=== PATIENT | female | born 1960 | race Caucasian/White ===

== ENCOUNTER 2016-10-26 06:30 | Emergency (ER) | payer OTHER ==
[~2016-10-26] VITALS: Ht 165.1 cm; Wt 122.5 kg
[~2016-10-26 06:30] MED LIST: METF500T2 PO
[2016-10-26 06:32] VITALS: BP 147/89
[2016-10-26 07:37] VITALS: BP 142/74
== END 2016-10-26 07:38 | disposition home or self-care (01) ==
LOC: MED 06:30
DX: R53.1 Weakness (principal); R05 Cough; J34.89 Other specified disorders of nose and nasal sinuses; J45.909 Unspecified asthma, uncomplicated; E11.9 Type 2 diabetes mellitus without complications; I10 Essential (primary) hypertension; F17.200 Nicotine dependence, unspecified, uncomplicated; Z90.49 Acquired absence of other specified parts of digestive tract
CPT/HCPCS: 99283

== ENCOUNTER 2019-06-01 17:05 | Inpatient (IN) | payer OTHER ==
[~2019-06-01] VITALS: Ht 152.4 cm; Wt 159.7 kg
--- NOTE | 2019-06-01 17:05 | NUR ---
Pt placed in bed 4 by EMS.
[2019-06-01 17:15] VITALS: BP 224/80
[2019-06-01] MEDS ORDERED: FUROSEMIDE 40 MG/4 ML VIAL IVP ONE (17:25)
--- NOTE | 2019-06-01 17:25 | NUR ---
RT called to place patient on BiPap.
--- NOTE | 2019-06-01 17:30 | NUR ---
59/F BIBA. PT. CAME IN COMLAINING OF SOB INITIAL 02 WAS 91/92. RR 30, BP 213/96, HR 94. 22IVG PLACE ON LEFT HAND BY EMS EN ROUTE. TREATMENT WAS GIVEN ON AMBULANCE +RELIEF WITH IT. PT IS PALE, CRACKLES NOTED BILATERALLY ON EXPIRATION AND INSPIRATION, ACCESORY MUSCLES USED, TACHYPNEA, SOB, CAP REFILL >3SECS, SHE IS COLD TO TOUCH. 02 TO 10L, INITIALLY, SWITCHED TO 2ND TREATMENT TO B-PAP. BP IS 224/80 ER MD AWARE. PMHX: HTN, COPD, DIABETES, SEVERE OSTEOARTHRITIS RX: UNKNOWN
--- NOTE | 2019-06-01 17:31 | NUR ---
RT AT BEDSIDE DOING TREATMENT
[2019-06-01 17:33] VITALS: BP 224/80
[2019-06-01 17:54] LABS: BASOPHILS % (AUTO) 0.5 % (0.0-2.0); EOSINOPHILS # (AUTO) 0.1 K/uL (0-0.4); EOSINOPHILS % (AUTO) 1.7 % (0.0-4.0); HEMATOCRIT 27.4 % (36-48); LYMPHOCYTES # (AUTO) 0.5 K/uL (2.5-16.5); LYMPHOCYTES % (AUTO) 7.2 % (20.5-51.1); MEAN CORPUSCULAR HEMOGLOBIN 27 pg (27-31); MEAN CORPUSCULAR HGB CONC 33 g/dL (33-37); MEAN CORPUSCULAR VOLUME 83.7 fL (80-94); MONOCYTES # (AUTO) 0.3 K/uL (0.8-1.0); MONOCYTES % (AUTO) 3.5 % (1.7-9.3); NEUTROPHILS # (AUTO) 6.5 K/uL (1.8-7.7); NEUTROPHILS % (AUTO) 87.1 % (42.2-75.2); PLATELET COUNT (AUTO) 178 K/uL (140-450); RED BLOOD CELL COUNT(AUTO) 3.28 MIL/uL (4.20-5.40); RED CELL DISTRIBUTION WIDTH 15.7 % (11.6-13.7); WHITE BLOOD COUNT (AUTO) 7.4 K/uL (4.8-10.8)
[2019-06-01 18:08] LABS: ANION GAP 14.5 (8-16); CARBON DIOXIDE 21.3 mmol/L (21-32); CREATININE 1.7 mg/dL (0.6-1.3); POTASSIUM 4.8 mmol/L (3.5-5.1)
[2019-06-01 18:13] LABS: ALBUMIN 1.9 g/dL (3.4-5.0); TOTAL BILIRUBIN 1.1 mg/dL (0.0-1.0)
[2019-06-01] MEDS ORDERED: ACETAMINOPHEN 325 MG TAB PO PRN (19:10)
--- NOTE | 2019-06-01 19:18 | NUR ---
REPORT RECEIVED FROM RAISA EPSTEIN. TRANSFER OF CARE AT THIS TIME.
--- NOTE | 2019-06-01 19:20 | NUR ---
PT SITTING UP IN HIGH ARIAS'S WITH BIPAP MASK ON. VSS. SKIN PINK, WARM, DRY. NO COMPLAINTS AT THIS TIME.
--- NOTE | 2019-06-01 21:02 | NUR ---
mPatient will be admitted to care of Dr. Freeman. Admited to TELE. Will go to room 125A. Belongings list completed. Report to RAISA Bernard.
--- NOTE | 2019-06-01 21:25 | NUR ---
RECEIVED BEDSIDE REPORT FROM NEUROSURGERY SPINE PHYSICIAN. PT IS AAOX4. AMERICAN SPEAKING. WITH SOME SOB RR 25 WILL BE PLACED BACK ON BIPAP. SKIN IS INTACT. REPORTS ECZEMA HAS REDNESS ON ANH ARMS AND LEGS. NO OPEN WOUNDS. PT CAME IN [facility] AND TRANSFERRED PT TO BED WITH ASSIST OF 5 NURSES. PT TOLERATED WELL. ANASARCA NOTED PITTING +4. PT STATES ABLE TO AMBULATE AT HOME. "MY LEGS FEEL TO HEAVY I CAN BARELY MOVE THEM" DENIES ON OXYGEN AT HOME. IV ON L HAND 22G SL. REPORTS SOB IN THE PAST MONTH. LIVES AT HOME WITH BOYFRIEND. POC DISCUSSED WITH PT. VS: 207/90 HR 83 99% ON BIPAP RR 25 98.0 DENIES PAIN. ORIENTED PT TO ROOM AND STAFF, VISITING HOURS, AND CALL LIGHT. MRSA SWAB OBTAINED. WILL CONTINUE TO MONITOR.
[2019-06-01 21:30] VITALS: BP 207/90
--- NOTE | 2019-06-01 21:40 | NUR ---
PAGED DR SCHWARTZ FOR ADMISSION ORDERS. AND HIGH B/P ORDER FOR PRN HYDRALAZINE.
[2019-06-01] MEDS ORDERED: hydrALAZINE 10 MG TAB PO PRN (21:45)
[2019-06-01] MEDS ORDERED: guaiFENesin 20 MG/ML UDC PO PRN (21:45)
--- NOTE | 2019-06-01 22:30 | NUR ---
15 F BRIDGES CATH INSERTED WITH HELP OF 2 OTHER NURSES. PATIENT WAS CLEANED AND THEN USING STERILE TECHNIQUE BRIDGES INSERTED WITH URINE FLASH BACK NOTED ADVANCED 2 MORE INCHES. INFLATED BALLOON WITH 10CC. BAG WAS LABELED WITH DATE TIME AND INITIALS. PT WITH 400CC OUTPUT. PT TOLERATED WELL. CALL LIGHT IS WITHIN REACH. WILL CONTINUE TO MONITOR.
[2019-06-01] MEDS: METOLAZONE 5 MG TAB PO SCH (22:46)
[2019-06-01] MEDS ORDERED: ONDANSETRON 4 MG/2 ML VIAL IVP SCH (23:00)
--- NOTE | 2019-06-01 23:00 | NUR ---
IV ON L HAND INFILTRATED. IV REMOVED IV IS INTACT. NEW IV INSERTED ON R AC 22G ON FIRST ATTEMPT. PT TOLERATED WELL. ALL NEEDS MET AT THIS TIME. WILL CONTINUE TO MONITOR.
[2019-06-01] MEDS: FUROSEMIDE 100 MG/10 ML VIAL IVP SCH (23:06)
--- NOTE | 2019-06-01 23:06 | NUR ---
ROXY MEDICATIONS WERE NOW GIVEN. LASIX IVP WILL RECHECK B/P. SAFETY MEASURES ARE IN PLACE. CALL LIGHT IS WITHIN REACH.
[2019-06-01] MEDS ORDERED: DEXTROSE 50% 50 ML SYR IVP PRN (23:15)
[2019-06-01] MEDS ORDERED: INSULIN LISPRO SLIDING SCALE 100 UNITS/ML VIAL SUBQ PRN (23:15)
[2019-06-01] MEDS ORDERED: hydrALAZINE 20 MG/ML VIAL IVP PRN (23:15)
[2019-06-02] VITALS (7 sets, daily range): BP systolic 117–189; BP diastolic 46–72
--- NOTE | 2019-06-02 00:45 | NUR ---
BP HIGH 181/72 HR 77 ADMINISTERED PRN HYDRALAZINE. ALL SAFETY MEASURES ARE IN PLACE. WILL CONTINUE TO MONITOR.
[2019-06-02] MEDS ORDERED: ALOG25TA2 PO (02:23)
[2019-06-02] MEDS ORDERED: [UNRECOGNIZED DRUG - CODE] TP (02:32)
[2019-06-02] MEDS ORDERED: VITA1TAB44 PO (02:32)
[2019-06-02] MEDS ORDERED: FURO-570 PO (02:32)
[2019-06-02] MEDS ORDERED: VITD1000 PO (02:32)
[2019-06-02] MEDS ORDERED: CARV6.25 PO (02:32)
[2019-06-02] MEDS ORDERED: MONT10TA35 PO (02:32)
[2019-06-02] MEDS ORDERED: ATOR20TA PO (02:32)
[2019-06-02] MEDS ORDERED: HYDR-1098 PO (02:32)
--- NOTE | 2019-06-02 03:00 | NUR ---
RT CHANGED PT FROM BIPAP TO OXIMIZER ON 5L SAT 97%. PT TOLERATED WELL. CALL LIGHT IS WITHIN REACH. WILL CONTINUE TO MONITOR.
--- NOTE | 2019-06-02 04:10 | NUR ---
VITAL SIGNS ARE STABLE. B/P TRENDING DOWN. 163/65 HR 83 SAT 97% ON OXIMIZER 5L. ALL NEEDS MET AT THIS TIME. CALL LIGHT IS WITHIN REACH. WILL CONTINUE TO MONITOR.
--- NOTE | 2019-06-02 06:00 | NUR ---
PATIENT IS SLEEPING COMFORTABLY IN BED. NO S/S OF DISTRESS PT REMAINS ON 5L O2 VIA OXIMIZER. ALL NEEDS MET AT THIS TIME. CALL LIGHT IS WITHIN REACH. WILL CONTINUE TO MONITOR.
[2019-06-02] MEDS: BLOOD GLUCOSE MONITORING 1 DEV DEV FS SCH ×4 (06:05→19:45)
--- NOTE | 2019-06-02 07:23 | NUR ---
DCEREASE OXYMIZER FROM 5L TO 3 L OXYMIZER SPO2 97
--- NOTE | 2019-06-02 07:27 | NUR ---
GAVE BEDSIDE REPORT TO DAY RN. PT ENDORSED IN STABLE CONDITION.
--- NOTE | 2019-06-02 07:34 | NUR ---
Received report from production supervisor off shift nurse. Pt in bed. No signs of distress. Call light in reach. [id number]
--- NOTE | 2019-06-02 08:11 | NUR ---
PATIENT HAS BEEN SCREENED AND CATEGORIZED HIGH NUTRITION RISK. PATIENT WILL BE SEEN WITHIN 1-2 DAYS OF ADMISSION. 06/03/[address]
--- NOTE | 2019-06-02 08:23 | NUR ---
PLACED PT ON HARDY V60 PER PT REQUEST ON DOCUMENTED SETTINGS, ALARMS ARE ON AND AUDIBLE, PT IN HF ALERT WEARING, F\F MASK SIZE LG BS DIMINISHED, BIPAP PLUGGED INTO RED OUTLET, CONT. POX IN PLACE
[2019-06-02] MEDS: hydrALAZINE 25 MG TAB PO SCH ×3 (08:47→16:39)
[2019-06-02] MEDS: METOLAZONE 5 MG TAB PO SCH ×2 (08:47→20:07)
[2019-06-02] MEDS: CARVEDILOL 6.25 MG TAB PO SCH ×2 (08:47→20:07)
[2019-06-02] MEDS: FUROSEMIDE 100 MG/10 ML VIAL IVP SCH (08:48)
[2019-06-02] MEDS ORDERED: NON-FORMULARY ITEM (Hydralazine HCl (Hydralazine Hcl) 25 MG) PO SCH (09:00)
--- NOTE | 2019-06-02 10:58 | NUR ---
Pt in bed. Family be bedside. No C/O pain. not in distress. Pt with BIPAP machine. Call light in reach.
--- NOTE | 2019-06-02 14:33 | NUR ---
Pt resting in bed.No distress. Call light in reach. [id number]
--- NOTE | 2019-06-02 16:55 | NUR ---
PT REQUEST BIPAP REMOVED 1710 ATTEMPTED ABG DID NOT OBTAIN PLACED PT ON 3L OXYMIZER SPO2 94 WILL ENDORSE TO NOC
--- NOTE | 2019-06-02 17:35 | NUR ---
R IV line was infiltrated. IV line removed with catheter intact. Left hand IV line 24 G inserted. No distress. Boyfriend by bedside. Call light in reach.
--- NOTE | 2019-06-02 19:21 | NUR ---
Shift report endorsed to material handler 1st shift nurse. Pt resting in be. No signs of distress. Call light in reach. [id number]
--- NOTE | 2019-06-02 19:22 | NUR ---
RECEIVED BEDSIDE REPORT FROM DAY RN. PT IS AAOX4. POLISH SPEAKING. WITH SOME RR 22 ON OXIMIZER 2L SAT 97%. SKIN IS INTACT. REPORTS ECZEMA HAS REDNESS ON ANH ARMS AND LEGS. ANASARCA NOTED PITTING +4. BRIDGES CATH DRAINING CLEAR YELLOW URINE. IV ON L HAND 24G SL. REPORTS SOB IN THE PAST MONTH. LIVES AT HOME WITH BOYFRIEND AND SON. POC DISCUSSED WITH PT. CALL LIGHT IS WITHIN REACH. WILL CONTINUE TO MONITOR.
--- NOTE | 2019-06-02 19:50 | NUR ---
RECEIVED PATIENT ON 3L OXYMIZER, PULSE OX SAT 95%. CALLED BY RN TO BEDSIDE, PATIENT COMPLAINING OF FEELING SHORT OF BREATH, WOULD LIKE TO BE PUT ON BIPAP. PLACED PATIENT ON BIPAP. PROTECTIVE SKIN BARRIER IN PLACE. SKIN INTACT, NO REDNESS. PATIENT TOLERATING BIPAP WELL AT THIS TIME. WILL CONTINUE TO MONITOR.
--- NOTE | 2019-06-02 20:07 | NUR ---
VITAL SIGNS ARE WITHIN NORMAL LIMITS. PT PLACED BACK ON BIPAP PER REQUEST. DR CARDONA WILL ORDER LASIX DRIP. WILL F/U. ROXY MEDICATIONS GIVEN PER ORDERS. CALL LIGHT IS WITHIN REACH. WILL CONTINUE TO MONITOR.
[2019-06-02] MEDS ORDERED: FUROSEMIDE 100 MG in DEXTROSE 5% 100 ML IV ONE (21:00)
[2019-06-02] MEDS ORDERED: FUROSEMIDE 100 MG/10 ML VIAL ONE (21:37)
--- NOTE | 2019-06-02 21:49 | NUR ---
B/P 140/47 HR 73 97% ON BIPAP. LASIX DRIP STARTED PER ORDERS. WILL CONTINUE TO MONITOR
--- NOTE | 2019-06-02 22:15 | NUR ---
PATIENT RESTING COMFORTABLY IN BED WITH HOB ELEVATED. PT SPEAKING WITH SON ON PHONE. PT REMAINS ON BIPAP OFFERED TO PUT ON OXIMIZER WHILE SHE SPEAKS WITH SON PER PT SHE WANTS TO REMAIN ON BIPAP. ALL NEEDS MET AT THIS TIME. CALL LIGHT IS WITHIN REACH.
[2019-06-03] VITALS: BP 119/47
--- NOTE | 2019-06-03 | NUR ---
VITAL SIGNS ARE WITHIN NORMAL LIMITS. PT REMAINS ON LASIX DRIP. ALL NEEDS MET AT THIS TIME. CALL LIGHT IS WITHIN REACH.
--- NOTE | 2019-06-03 02:17 | NUR ---
PATIENT IS SLEEPING COMFORTABLY IN BED. CHEST RISE AND FALL. CALL LIGHT IS WITHIN REACH.
[2019-06-03 04:00] VITALS: BP 149/53
--- NOTE | 2019-06-03 04:20 | NUR ---
VITAL SIGNS ARE WITHIN NORMAL LIMITS. ALL NEEDS MET AT THIS TIME. CALL LIGHT IS WITHIN REACH.
[2019-06-03] MEDS: BLOOD GLUCOSE MONITORING 1 DEV DEV FS SCH ×4 (05:38→20:03)
[2019-06-03 06:49] LABS: PHOSPHORUS 5.1 mg/dL (2.5-4.9)
[2019-06-03 06:59] LABS: CARBON DIOXIDE 21.7 mmol/L (21-32); POTASSIUM 4.7 mmol/L (3.5-5.1)
[2019-06-03 07:07] LABS: EOSINOPHILS # (AUTO) 0.2 K/uL (0-0.4); HEMOGLOBIN 7.9 g/dL (12.0-16.0); LYMPHOCYTES # (AUTO) 0.8 K/uL (2.5-16.5); MONOCYTES # (AUTO) 0.4 K/uL (0.8-1.0)
--- NOTE | 2019-06-03 07:11 | NUR ---
GAVE BEDSIDE REPORT TO DAY RN. PT ENDORSED IN STABLE CONDITION.
[2019-06-03 07:16] LABS: BASOPHILS % (AUTO) 0.5 % (0.0-2.0); EOSINOPHILS % (AUTO) 5.5 % (0.0-4.0); HEMATOCRIT 24.4 % (36-48); LYMPHOCYTES % (AUTO) 20.8 % (20.5-51.1); MEAN CORPUSCULAR HEMOGLOBIN 27 pg (27-31); MEAN CORPUSCULAR HGB CONC 32 g/dL (33-37); MEAN CORPUSCULAR VOLUME 84.3 fL (80-94); MONOCYTES % (AUTO) 11.2 % (1.7-9.3); NEUTROPHILS # (AUTO) 2.4 K/uL (1.8-7.7); PLATELET COUNT (AUTO) 160 K/uL (140-450); RED CELL DISTRIBUTION WIDTH 15.9 % (11.6-13.7); WHITE BLOOD COUNT (AUTO) 3.9 K/uL (4.8-10.8)
--- NOTE | 2019-06-03 07:41 | NUR ---
RECEIVED BEDSIDE REPORT FROM COMMUNITY SERVICE COORDINATOR RN FOR CONTINUITY OF CARE. PT IS AAOX4. BELGIAN SPEAKING. WITH SOME RR 22 ON OXYMIZER 2L SAT 97%. SKIN IS INTACT. ANASARCA NOTED PITTING +4. BRIDGES CATH DRAINING CLEAR YELLOW URINE. IV ON L HAND 24G SL. REPORTS NO SOB AT THIS TIME. LIVES AT HOME WITH BOYFRIEND AND SON. POC DISCUSSED WITH PT AND PT VERBALIZED UNDERSTANDING. CALL LIGHT IS WITHIN REACH. WILL MONITOR PT CLOSELY.
[2019-06-03 08:15] VITALS: BP 143/51
--- NOTE | 2019-06-03 09:37 | NUR ---
ADMINISTERED MORNING MEDS TO PT. PT TOLERATED THEM WELL. WILL CONTINUE TO ROUND FREQUENTLY ON PT. BED IN LOW POSITION, CALL LIGHT WITHIN REACH.
[2019-06-03] MEDS: METOLAZONE 5 MG TAB PO SCH (09:54)
[2019-06-03] MEDS: hydrALAZINE 25 MG TAB PO SCH ×3 (09:55→17:46)
[2019-06-03] MEDS: CARVEDILOL 6.25 MG TAB PO SCH ×2 (09:55→20:12)
--- NOTE | 2019-06-03 11:22 | NUR ---
PT RESTING IN BED. ALL NEEDS MET. WILL CONTINUE TO ROUND FREQUENTLY ON PT.
[2019-06-03 12:00] VITALS: BP 138/58
--- NOTE | 2019-06-03 13:33 | NUR ---
06/03/19 RD INITIAL ASSESSMENT COMPLETED PLEASE REFER TO NUTRITION ASSESSMENT UNDER CARE ACTIVITY FOR ESTIMATED NUTRITIONAL NEEDS. 1. RECOMMEND CCHO 60GM AND CARDIAC DIET TOLERATED 2. RD PROVIDED PT AND FAMILY WITH CONSISTENT CARBOHYDRATE AND LOW SODIUM NUTRITION EDUCATION 3. RD TO FOLLOW-UP 5-7 DAYS, LOW RISK MIGUEL ANGEL RIVERA, RD
--- NOTE | 2019-06-03 13:46 | NUR ---
PT SLEEPING. WILL CONTINUE TO ROUND FREQUENTLY ON PT.
--- NOTE | 2019-06-03 15:45 | NUR ---
PT WAS HAVING HARD TIME BREATHING AFTER BEING HELPED FROM HER BEDSIDE COMMODE. RT CALLED TO PLACE BIPAP ON PT. PT NOW MORE RELAXED WITH O2 SAT OF 96%. ALL NEEDS MET. WILL CONTINUE TO ROUND FREQUENTLY ON PT.
[2019-06-03 16:00] VITALS: BP 139/57
--- NOTE | 2019-06-03 16:13 | NUR ---
Follow up appointment with PCP Dr. Maryann Almeida on 06/12/19 at 11:00 a.m. at [address] [place] [id number]. Clinic # . Appointment slip placed inside the chart and will be given to the pt upon discharge with instructions per charge nurse Taylor Best RN.
--- NOTE | 2019-06-03 16:18 | NUR ---
Clinicals faxed to Dr. Maryann Almeida
--- NOTE | 2019-06-03 18:27 | NUR ---
PT HAVING DINNER. ALL NEEDS MET. WILL CONTINUE TO ROUND FREQUENTLY ON PT. BED IN LOW POSITION, CALL LIGHT WITHIN REACH.
--- NOTE | 2019-06-03 19:20 | NUR ---
RECEIVED PATIENT ON 3L OXYMIZER, PULSE OX SAT 97%. PATIENT COMPLAINS OF FEELING SHORT OF BREATH. PLACED ON BIPAP. PROTECTIVE SKIN GEL BARRIER IN PLACE. BIPAP CHECK DONE. BIPAP PLUGGED INTO CORRECT OUTLET. ALARMS ON AND AUDIBLE. TOLERATING BIPAP WELL AT THIS TIME. WILL CONTINUE TO MONITOR.
--- NOTE | 2019-06-03 19:29 | NUR ---
ENDORSED PT TO PROVIDER EDUCATION SPECIALIST FOR CONTINUITY OF CARE. PT IN STABLE CONDITION.
--- NOTE | 2019-06-03 19:30 | NUR ---
Received bedside report from AM nurse. Pt is laying in bed supine. Awake and alert. AOx4, mongolian speaking. No signs of respiratory distress or SOB noted. Pt is on oximizer 3L. IV access on Left hand 24 gauge saline lock. Pt skin is intact. Pt has Anasarca noted, pitting x4. Board updated. Bed is lowered. Will continue to monitor pt.
[2019-06-03 20:10] VITALS: BP 137/56
--- NOTE | 2019-06-03 21:00 | NUR ---
Pt has a blood glucose of 142. No insulin coverage needed.
--- NOTE | 2019-06-03 21:30 | NUR ---
Pt sister called and updated on pt condition.
--- NOTE | 2019-06-03 23:03 | NUR ---
Rounds done at this time. Pt sleeping comfortably. On BIPAP, tolerating well. Will continue to monitor patient.
--- NOTE | 2019-06-04 00:02 | NUR ---
Vital signs taken. No distress noted. O2 sat, 98% on BIPAP. Will continue to monitor pt.
[2019-06-04 00:09] VITALS: BP 153/57
--- NOTE | 2019-06-04 02:05 | NUR ---
Rounds done. Pt sleeping in bed comfortably. On BIPAP, tolerating well. No distress noted. Will continue to monitor.
[2019-06-04 04:01] VITALS: BP 143/48
--- NOTE | 2019-06-04 04:05 | NUR ---
Vital signs taken. Pt sleeping comfortably. Pt on BIPAP, tolerating well. O2 sat of 98%. Will continue to monitor pt.
[2019-06-04] MEDS: BLOOD GLUCOSE MONITORING 1 DEV DEV FS SCH ×4 (05:23→23:30)
--- NOTE | 2019-06-04 05:43 | NUR ---
Pt had a blood glucose of 90. No insulin coverage needed at this time.
[2019-06-04 06:17] LABS: ANION GAP 12.6 (8-16); CARBON DIOXIDE 22.1 mmol/L (21-32); CREATININE 2.3 mg/dL (0.6-1.3); POTASSIUM 4.7 mmol/L (3.5-5.1)
--- NOTE | 2019-06-04 06:22 | NUR ---
Pt in stable condition. No distress noted. Will endorse to AM shift nurse for continuity of care.
[2019-06-04 06:31] LABS: BASOPHILS % (AUTO) 0.6 % (0.0-2.0); EOSINOPHILS # (AUTO) 0.3 K/uL (0-0.4); EOSINOPHILS % (AUTO) 7.8 % (0.0-4.0); HEMATOCRIT 23.3 % (36-48); HEMOGLOBIN 7.7 g/dL (12.0-16.0); LYMPHOCYTES # (AUTO) 0.8 K/uL (2.5-16.5); LYMPHOCYTES % (AUTO) 18.7 % (20.5-51.1); MEAN CORPUSCULAR HEMOGLOBIN 28 pg (27-31); MEAN CORPUSCULAR HGB CONC 33 g/dL (33-37); MEAN CORPUSCULAR VOLUME 84.3 fL (80-94); MONOCYTES # (AUTO) 0.4 K/uL (0.8-1.0); MONOCYTES % (AUTO) 9.1 % (1.7-9.3); NEUTROPHILS # (AUTO) 2.6 K/uL (1.8-7.7); NEUTROPHILS % (AUTO) 63.8 % (42.2-75.2); PLATELET COUNT (AUTO) 149 K/uL (140-450); RED BLOOD CELL COUNT(AUTO) 2.76 MIL/uL (4.20-5.40); RED CELL DISTRIBUTION WIDTH 16.2 % (11.6-13.7)
[2019-06-04 06:32] LABS: PHOSPHORUS 5.5 mg/dL (2.5-4.9)
--- NOTE | 2019-06-04 07:35 | NUR ---
REC'D PT ON PALLAVI V60 BIPAP SETTINGS 12/5 RR 12 FIO2 28% ALARMS ON AND AUDIBLE AND AMBU BAG AT SIDE OF BIPAP AND BIPAP IS PLUGGED INTO RED OUTLET, B\S ARE DIMINISHED BILATERALLY PT IS WEARING LARGE FACE MASK AND PT IS SLEEPING
--- NOTE | 2019-06-04 07:46 | NUR ---
RECEIVED ENDORSEMENT FROM DESIGN TEACHER RN FOR CONTINUITY OF CARE FROM YESTERDAY. PT IS IN STABLE CONDITION AT THIS TIME. WILL CONTINUE TO ROUND FREQUENTLY ON PT.
[2019-06-04 08:00] VITALS: BP 118/47
--- NOTE | 2019-06-04 08:14 | NUR ---
PT TAKEN OFF BIPAP TO EAR 3 L OXYMIZER PLACED
--- NOTE | 2019-06-04 09:34 | NUR ---
PT RESTING IN BED. ALL NEEDS MET. WILL CONTINUE TO MONITOR PT CLOSELY.
[2019-06-04] MEDS: METOLAZONE 5 MG TAB PO SCH (10:31)
[2019-06-04] MEDS: hydrALAZINE 25 MG TAB PO SCH ×3 (10:32→17:45)
[2019-06-04] MEDS: CARVEDILOL 6.25 MG TAB PO SCH ×2 (10:32→21:00)
--- NOTE | 2019-06-04 11:42 | NUR ---
PT SLEEPING. ALL NEEDS MET.
[2019-06-04 12:00] VITALS: BP 147/44
[2019-06-04] MEDS: FUROSEMIDE 100 MG/10 ML VIAL IV SCH ×2 (14:25→22:53)
--- NOTE | 2019-06-04 15:48 | NUR ---
PT RESTING IN BED WITH AT BEDSIDE. WILL CONTINUE TO ROUND FREQUENTLY ON PT
[2019-06-04 16:00] VITALS: BP 143/62
--- NOTE | 2019-06-04 19:49 | NUR ---
ENDORSED OT SECTION CREWS ACTIVITIES CLERK. PT IN STABLE CONDITION.
[2019-06-04] MEDS: ALBUMIN HUMAN 25% 50 ML IV SCH (21:00)
[2019-06-04] MEDS: HYDROcodone/APAP 5/325 MG 1 TAB TAB PO PRN (23:25)
--- NOTE | 2019-06-05 | NUR ---
PT RECIEVED AWAKE ALERT AND ORIENTED , PT IS ABESE . PT ON LASIX LAST EVENING . PT MEDICATED WITH VICODIN FOR PAIN PT SLEEPING AT THIS TIME .
[2019-06-05 02:04] VITALS: BP 140/60
[2019-06-05] MEDS: FUROSEMIDE 100 MG/10 ML VIAL IV SCH ×2 (05:35→20:52)
--- NOTE | 2019-06-05 06:00 | NUR ---
PT AWAKE , NO COMPLAINING OF ANY PAIN PT SLEPT WITH BIPAP .TOLERATED IT WELL.
--- NOTE | 2019-06-05 07:20 | NUR ---
PATIENT IN BED, AWAKE AND ALERT, ORIENTED X4. O2 ON AT 3L VIA NC. HOB ELEVATED, DENIES SOB. IV INTACT AND PATENT TO LEFT HAND. BRIDGES CATHETER INTACT AND DRAINING. NO DISTRESS NOTED.
[2019-06-05 07:53] LABS: BASOPHILS % (AUTO) 0.5 % (0.0-2.0); EOSINOPHILS # (AUTO) 0.3 K/uL (0-0.4); EOSINOPHILS % (AUTO) 8.1 % (0.0-4.0); HEMATOCRIT 21.5 % (36-48); LYMPHOCYTES % (AUTO) 23.8 % (20.5-51.1); MEAN CORPUSCULAR HEMOGLOBIN 28 pg (27-31); MEAN CORPUSCULAR HGB CONC 33 g/dL (33-37); MEAN CORPUSCULAR VOLUME 84.3 fL (80-94); MONOCYTES # (AUTO) 0.3 K/uL (0.8-1.0); MONOCYTES % (AUTO) 7.4 % (1.7-9.3); NEUTROPHILS # (AUTO) 2.4 K/uL (1.8-7.7); NEUTROPHILS % (AUTO) 60.2 % (42.2-75.2); PLATELET COUNT (AUTO) 152 K/uL (140-450); RED BLOOD CELL COUNT(AUTO) 2.55 MIL/uL (4.20-5.40); RED CELL DISTRIBUTION WIDTH 15.6 % (11.6-13.7)
[2019-06-05 08:00] VITALS: BP 148/53
--- NOTE | 2019-06-05 08:00 | NUR ---
RECEIVED CALL FROM LAB CRITICAL VALUE HGB 7, HCT 21.5. PAGED DR. MOQSUEDA.
--- NOTE | 2019-06-05 08:14 | NUR ---
RECEIVED CALL BACK FROM DR. MOSQUEDA, NOTIFIED OF ABNORMAL HGB, HCT LEVEL. DR. MOSQUEDA TO SEE PATIENT.
[2019-06-05] MEDS: BLOOD GLUCOSE MONITORING 1 DEV DEV FS SCH ×4 (08:15→20:57)
[2019-06-05 08:25] LABS: MAGNESIUM 2.1 mg/dL (1.8-2.4); PHOSPHORUS 5.4 mg/dL (2.5-4.9)
[2019-06-05] MEDS: HYDROcodone/APAP 5/325 MG 1 TAB TAB PO PRN (08:43)
[2019-06-05] MEDS: hydrALAZINE 25 MG TAB PO SCH ×3 (08:46→17:00)
[2019-06-05] MEDS: METOLAZONE 5 MG TAB PO SCH (08:46)
[2019-06-05] MEDS: CARVEDILOL 6.25 MG TAB PO SCH ×3 (08:47→23:48)
[2019-06-05] MEDS: ALBUMIN HUMAN 25% 50 ML IV SCH ×2 (08:48→20:53)
[2019-06-05 09:58] LABS: ALBUMIN 1.6 g/dL (3.4-5.0); ANION GAP 13.9 (8-16); CARBON DIOXIDE 20.6 mmol/L (21-32); CREATININE 2.3 mg/dL (0.6-1.3); POTASSIUM 4.5 mmol/L (3.5-5.1); TOTAL BILIRUBIN 0.4 mg/dL (0.0-1.0)
--- NOTE | 2019-06-05 10:00 | NUR ---
MD CHANGE AT BEDSIDE AND TOLD PT TO NOT WEAR BIPAP ANY MORE OF NOW. PT OFF BIPAP AND ON 3 L OXIMIZER. WILL CONTINUE TO MONITOR.
[2019-06-05] MEDS: ONDANSETRON 4 MG/2 ML VIAL IVP PRN ×2 (11:28→18:55)
--- NOTE | 2019-06-05 11:28 | NUR ---
PATIENT REPORTS NAUSEA, ZOFRAN IVP GIVEN ORDERED PRN. WILL CONTINUE TO MONITOR.
[2019-06-05 12:00] VITALS: BP 147/63
--- NOTE | 2019-06-05 13:00 | NUR ---
PT. DENIES NAUSEA. PATIENT IS AWAKE AND VERBALLY RESPONSIVE, OXIMIZER IN PLACE @ 3L. O2 SAT 97%.
[2019-06-05 16:00] VITALS: BP 129/49
--- NOTE | 2019-06-05 16:51 | NUR ---
DR. MARTINES INFORMED OF PATIENT'S CHEM PANEL. NO ORDERS.
--- NOTE | 2019-06-05 18:50 | NUR ---
PT ASKED TO GO ON BIPAP BUT THEN CHANGED HER MIND BECAUSE HE WAS STILL EXPERIENCING NAUSEA DESPITE MEDICATIONS. WILL RECHECK PATIENT.
--- NOTE | 2019-06-05 19:01 | NUR ---
C/O NAUSEA, ZOFRAN GIVEN ORDERED.
--- NOTE | 2019-06-05 19:23 | NUR ---
REPORT GIVEN TO NIGHT NURSE. PATIENT IN STABLE CONDITION.
--- NOTE | 2019-06-05 19:25 | NUR ---
REPORT RECEIVED FROM AM NURSE AT BEDSIDE. PT IN STABLE CONDITION. AAOX4. INTRODUCED SELF TO PT. BOARD UPDATED. NO COMPLAINTS OF PAIN. NO SOB OXYMIZER ON 3L. AFEBRILE. PT IS ON BEDREST. PT HAS BRIDGES. IV SITE R HAND 24G RUNNING SL PATENT AND INTACT. SKIN WARM, DRY, AND INTACT WITH NO OPEN WOUNDS. BED LOCKED IN LOW POSITION. CALL ROGEL WITHIN REACH. SAFETY PRECAUTION IN PLACE. ALL NEEDS MET AT THIS TIME.
[2019-06-05 20:00] VITALS: BP 139/54
--- NOTE | 2019-06-05 20:52 | NUR ---
LASIX GIVEN IVP. HEPARIN GIVEN SUBQ. ALBUMIN HUNG AND RUNNING. BS 107 NO INSULIN COVERAGE NEEDED. PT TOLERATED WELL. PT REFUSED COREG.
--- NOTE | 2019-06-05 21:50 | NUR ---
PT SLEEPING COMFORTABLY ON 3L O2 VIA OXYMIZER. PT IN STABLE CONDITION.
--- NOTE | 2019-06-05 23:10 | NUR ---
PT SLEEPING COMFORTABLY BUT AROUSABLE. NO S/S OF DISTRESS NOTED. WILL CONTINUE TO MONITOR.
--- NOTE | 2019-06-05 23:48 | NUR ---
PT BP ELEVATED. PT REFUSED COREG 2100 DOSE. TOLD PATIENT BLOOD PRESSURE INCREASING. COREG GIVEN PO. PT TOLERATED WELL.
[2019-06-06] VITALS (9 sets, daily range): BP systolic 97–175; BP diastolic 36–65
--- NOTE | 2019-06-06 01:45 | NUR ---
PT SLEEPING COMFORTABLY BUT AROUSABLE. NO S/S OF DISTRESS NOTED. NO COMPLAINTS OF PAIN. NO SOB. AFEBRILE. WILL CONTINUE TO MONITOR.
--- NOTE | 2019-06-06 03:30 | NUR ---
PT SLEEPING COMFORTABLY BUT AROUSABLE. NO S/S OF DISTRESS NOTED. RESPIRATIONS EVEN, UNLABORED, AND WNL. WILL CONTINUE TO MONITOR.
[2019-06-06] MEDS: BLOOD GLUCOSE MONITORING 1 DEV DEV FS SCH ×4 (05:25→21:10)
--- NOTE | 2019-06-06 05:25 | NUR ---
BS 71. NO INSULIN COVERAGE NEEDED. PT GIVEN ORANGE JUICE IN CASE BS DROPS EVEN FURTHER.
[2019-06-06 06:14] LABS: BASOPHILS % (AUTO) 0.8 % (0.0-2.0); EOSINOPHILS # (AUTO) 0.2 K/uL (0-0.4); EOSINOPHILS % (AUTO) 6.1 % (0.0-4.0); HEMATOCRIT 24.8 % (36-48); HEMOGLOBIN 8.2 g/dL (12.0-16.0); LYMPHOCYTES # (AUTO) 0.8 K/uL (2.5-16.5); LYMPHOCYTES % (AUTO) 20.8 % (20.5-51.1); MEAN CORPUSCULAR HEMOGLOBIN 28 pg (27-31); MEAN CORPUSCULAR HGB CONC 33 g/dL (33-37); MEAN CORPUSCULAR VOLUME 84.2 fL (80-94); MONOCYTES # (AUTO) 0.2 K/uL (0.8-1.0); MONOCYTES % (AUTO) 5.8 % (1.7-9.3); NEUTROPHILS # (AUTO) 2.4 K/uL (1.8-7.7); NEUTROPHILS % (AUTO) 66.5 % (42.2-75.2); PLATELET COUNT (AUTO) 164 K/uL (140-450); RED BLOOD CELL COUNT(AUTO) 2.95 MIL/uL (4.20-5.40); RED CELL DISTRIBUTION WIDTH 15.9 % (11.6-13.7); WHITE BLOOD COUNT (AUTO) 3.7 K/uL (4.8-10.8)
--- NOTE | 2019-06-06 06:55 | NUR ---
PT SLEEPING COMFORTABLY BUT AROUSABLE. PT IN STABLE CONDITION.
[2019-06-06 07:18] LABS: MAGNESIUM 2.1 mg/dL (1.8-2.4); PHOSPHORUS 5.7 mg/dL (2.5-4.9)
[2019-06-06 07:29] LABS: ALBUMIN 2.1 g/dL (3.4-5.0); ANION GAP 12.7 (8-16); CARBON DIOXIDE 23.8 mmol/L (21-32); CREATININE 2.1 mg/dL (0.6-1.3); POTASSIUM 4.5 mmol/L (3.5-5.1); TOTAL BILIRUBIN 0.5 mg/dL (0.0-1.0)
--- NOTE | 2019-06-06 07:47 | NUR ---
RECEIVED HAND OF REPORT FROM PM RN PT APPEARS STABLE AND IN NO APPARENT DISTRESS. ALL SAFETY MEASURES ARE IN PLACE WILL CONTINUE TO MONITOR. PT ON 2L 02 VIA OXIMIZER ALL SAFETY MEASURES ARE IN PLACE WILL CONTINUE TO MONITOR
[2019-06-06] MEDS: CARVEDILOL 6.25 MG TAB PO SCH ×2 (08:43→22:04)
[2019-06-06] MEDS: METOLAZONE 5 MG TAB PO SCH (08:43)
[2019-06-06] MEDS: FUROSEMIDE 100 MG/10 ML VIAL IV SCH ×2 (08:43→21:34)
[2019-06-06] MEDS: ALBUMIN HUMAN 25% 50 ML IV SCH (08:44)
[2019-06-06] MEDS: hydrALAZINE 25 MG TAB PO SCH ×3 (08:44→17:36)
--- NOTE | 2019-06-06 10:30 | NUR ---
ARMOND RESIDENTIAL ROOFER HELPER STATED SHE WAS INFORMED PT WAS PLANNED TO BE TRANSFERED TO ICU FOR A PROCEDURE. CHELSEY PERPETUAL INVENTORY CLERK CALLED DR. MOHAN TO CONFIRM THE TRANSFER AND THE PLAN OF CARE. WILL TRANSFER TO ICU
--- NOTE | 2019-06-06 10:41 | NUR ---
TRANSFERRED PT TO ICU BED 1. GAVE REPORT TO ADMINISTRATIVE SUPERVISOR. PT AWAKE IN BED PT APPEARS STABLE AND IN NO APPARENT DISTRESS. ALL SAFETY MEASURES ARE IN PLACE. PT ON 3L 02 VIA OXIMIZER. PT RECEIVING IV ZOSYN FROM THIS MORNING. ALBUMIN HAS BEEN INFUSING. PT HAS BRIDGES CATH IN PLACE. GAVE ICU SBAR AND CHART. ATTEMPTED TO CALL PT FAMILY NO ANSWER NO AVAILABLE VOICEMAIL. INFORMED OF PATIENT TRANSFER.
--- NOTE | 2019-06-06 10:46 | NUR ---
RECEIVED PATIENT FROM [facility] VIA BED, REPORT GIVEN BY SHERRY HENLEY, RN, FOR CONTINUITY OF CARE. PATIENT IS AAOX4, VITALS STABLE. ON NASAL OXIMIZER AT 3LPM. PERIPHERAL IV SITE TO LEFT HAND 24 G, ASYMPTOMATIC AND PATENT. NO SIGNS OF DISTRESS NOTED, DENIES PAIN OR SOB. HOB IS 40 DEGREES, BED LOCKED IN LOW POSITION. CALL LIGHT WITHIN REACH, WILL CONTINUE TO MONITOR
--- NOTE | 2019-06-06 12:08 | NUR ---
DR. VANG IS HERE TO SEE PATIENT, UPDATED ON PATIENT'S CONDITION.
--- NOTE | 2019-06-06 12:30 | NUR ---
DEMETRIUS FROM [facility] IS HERE TO EVALUATE PATIENT.
--- NOTE | 2019-06-06 13:30 | NUR ---
DR. MOHAN IS HERE TO SEE PATIENT.
--- NOTE | 2019-06-06 14:15 | NUR ---
DR. MOHAN AT BEDSIDE TO INSERT SWAN LACY.
[2019-06-06] MEDS ORDERED: COMMUNICATION ORDER MC SCH (14:55)
--- NOTE | 2019-06-06 15:00 | NUR ---
SWAN LACY PROCEDURE COMPLETED, PATIENT TOLERATED WELL. NO SIGNS OF DISTRESS NOTED
--- NOTE | 2019-06-06 15:09 | NUR ---
DR. MOHAN AT BEDSIDE TO SEE CHEST XRAY RESULTS, DR. MOHAN RETRACTED [facility] 1 INCH.
--- NOTE | 2019-06-06 15:10 | NUR ---
DR. VANG CALLED, RECEIVED ORDER FOR SILDENAFIL 20MG PO TID.
[2019-06-06] MEDS ORDERED: [UNRECOGNIZED DRUG - OTHER] IV SCH (16:35)
[2019-06-06] MEDS ORDERED: HEPARIN IV SCH (16:35)
[2019-06-06] MEDS ORDERED: SODIUM CHLORIDE IV SCH (16:35)
[2019-06-06] MEDS: SILDENAFIL 20 MG TAB PO SCH (17:36)
--- NOTE | 2019-06-06 18:17 | NUR ---
FAMILY AT BEDSIDE, NO SIGNS OF DISTRESS NOTED
--- NOTE | 2019-06-06 19:15 | NUR ---
RECEIVED PT FROM AM NURSE. PT AT BED AWAKE, CALM, COOPERATIVE, PERRLA 3MM, BRISK, PT BREATHING REGULARLY ON 3L/MIN NC OXYMIZER, LUNG SOUNDS CLEAR THROUGHOUT, DIMINISHED AT BASES, HEART RATE REGULAR, SR ON MONITOR, S1S2 PRESENT, CAP REFILL <3S, PULSES 2+ BILATERAL UPPER AND LOWER EXTREMITIES, PITTING EDEMA +2 ON BILATERAL LOWER EXTREMITIES, ABDOMEN, SOFT, ROUND, NONDISTENDED, NONTENDER, BOWEL SOUNDS ACTIVE IN ALL QUADRANTS, BLADDER SOFT, ROUND, NONDISTENDED, NONTENDER, BRIDGES CATHETER IN PLACE, SKIN WARM, DRY, INTACT, NO TENTING, PT HAS GENERALIZED WEAKNESS, PT HAS RIGHT SUBCLAVIAN DRESSING, SWAN LACY IN PLACE, [address], PT HAS LEFT HAND PERIPHERAL IV 24 GAUGE, SALINE LOCK. HOB 30 DEGREES, SIDE RAILS UP X2, BED AT LOWEST POSITION.
--- NOTE | 2019-06-06 19:21 | NUR ---
ENDORSED CONTINUITY OF CARE TO ARABELLA, ICE RINK ATTENDANT RN. NO SIGNS OF DISTRESS AT THIS TIME
--- NOTE | 2019-06-06 21:30 | NUR ---
MEDICATIONS GIVEN. PT FAMILY AT BEDSIDE, PT AT STABLE CONDITION AT THIS TIME.
[2019-06-07] VITALS (11 sets, daily range): BP systolic 127–156; BP diastolic 54–69
--- NOTE | 2019-06-07 00:15 | NUR ---
PT AT BED EYES CLOSED, BREATHING REGULARLY ON OXYMIZER 3L/MIN, WILL CONTINUE TO MONITOR.
--- NOTE | 2019-06-07 02:20 | NUR ---
PT AT BED EYES CLOSED, BREATHING REGULARLY ON OXYMIZER 3L/MIN, WILL CONTINUE TO MONITOR.
--- NOTE | 2019-06-07 04:59 | NUR ---
AM CARE PROVIDED. BRIDGES CATHETER EMPTIED. 650 ML COLLECTED, CLEAR, YELLOW URINE.
[2019-06-07 05:45] LABS: BASOPHILS % (AUTO) 0.7 % (0.0-2.0); EOSINOPHILS # (AUTO) 0.3 K/uL (0-0.4); EOSINOPHILS % (AUTO) 8.4 % (0.0-4.0); HEMATOCRIT 23.1 % (36-48); HEMOGLOBIN 7.5 g/dL (12.0-16.0); LYMPHOCYTES # (AUTO) 0.6 K/uL (2.5-16.5); LYMPHOCYTES % (AUTO) 15.3 % (20.5-51.1); MEAN CORPUSCULAR HEMOGLOBIN 27 pg (27-31); MEAN CORPUSCULAR HGB CONC 33 g/dL (33-37); MEAN CORPUSCULAR VOLUME 83.6 fL (80-94); MONOCYTES # (AUTO) 0.2 K/uL (0.8-1.0); MONOCYTES % (AUTO) 5.2 % (1.7-9.3); NEUTROPHILS # (AUTO) 2.8 K/uL (1.8-7.7); NEUTROPHILS % (AUTO) 70.4 % (42.2-75.2); PLATELET COUNT (AUTO) 173 K/uL (140-450); RED BLOOD CELL COUNT(AUTO) 2.77 MIL/uL (4.20-5.40); RED CELL DISTRIBUTION WIDTH 15.4 % (11.6-13.7)
[2019-06-07 06:42] LABS: MAGNESIUM 1.9 mg/dL (1.8-2.4); PHOSPHORUS 5.4 mg/dL (2.5-4.9)
[2019-06-07] MEDS: BLOOD GLUCOSE MONITORING 1 DEV DEV FS SCH ×4 (06:43→20:09)
[2019-06-07 06:56] LABS: ANION GAP 13.9 (8-16); CARBON DIOXIDE 22.4 mmol/L (21-32); POTASSIUM 4.3 mmol/L (3.5-5.1)
--- NOTE | 2019-06-07 07:25 | NUR ---
RECEIVED PT FROM GOLF INSTRUCTOR RNARABELLA. PT IN BED, WATCHING TV, AAOX4. NO S/S OF DISTRESS ON 3L/MIN OXYMIZER, LUNG SOUNDS CLEAR THROUGHOUT, SR ON MONITOR, CAP REFILL <3S, BOWEL SOUNDS ACTIVE. PITTING EDEMA +2 ON BILATERAL LOWER EXTREMITIES. BRIDGES CATHETER IN PLACE, DRAINING CLEAR YELLOW URINE. SKIN WARM, DRY, AND INTACT. PT HAS RIGHT SUBCLAVIAN SWAN LACY IN PLACE, [address]. LEFT HAND PERIPHERAL IV 24 GAUGE, FLUSHED, PT C/O PAIN, SITE LOOKS PINK, DC'D TIP INTACT. HOB 30 DEGREES, CALL LIGHT WITHIN REACH. SIDE RAILS UP X2, BED AT LOWEST POSITION.
[2019-06-07] MEDS: FUROSEMIDE 100 MG/10 ML VIAL IV SCH (08:24)
[2019-06-07] MEDS: SILDENAFIL 20 MG TAB PO SCH ×3 (08:27→18:10)
[2019-06-07] MEDS: METOLAZONE 5 MG TAB PO SCH (08:27)
[2019-06-07] MEDS: hydrALAZINE 25 MG TAB PO SCH ×3 (09:52→18:10)
[2019-06-07] MEDS: CARVEDILOL 6.25 MG TAB PO SCH ×2 (09:53→20:10)
--- NOTE | 2019-06-07 10:05 | NUR ---
DR VANG SEEN PT, ORDERED TO DC PT TO SNF FOR PHYSICAL THERAPY, [facility]. FOLLOW UP WITH HIM. DR VANG REVIEWED DISCHARGE MEDICATIONS.
--- NOTE | 2019-06-07 10:10 | NUR ---
MADE DR VANG AWARE PHOS 5.4, DR VANG SAID NO ACTION NEEDED.
[2019-06-07] MEDS ORDERED: FURO40TA9 PO (10:16)
[2019-06-07] MEDS ORDERED: METO5TAB9 PO (10:17)
[2019-06-07] MEDS ORDERED: SILD20TA PO (10:19)
--- NOTE | 2019-06-07 11:28 | NUR ---
ABG ON ROOM AIR WAS DONE. PT PO2 51.6, PAGED DR VANG. PLACED O2 VIA OXYMIZER AT 2L BACK ON PT. WILL LET SNF KNOW PT MIGHT NEEDS HOME O2 ARRANGEMENT IF CONDITION DOES NOT IMPROVE.
--- NOTE | 2019-06-07 12:21 | NUR ---
Clinicals faxed to [facility] and [facility] Ana .
--- NOTE | 2019-06-07 13:58 | NUR ---
Spoke with Ana JEREZ from [facility] regarding pt's follow up appt within 1 week after discharge from SNF with Dr. Jg Garcia (Waterworks Operator) and Dr. Melissa Vuong (Prime Broker).Per Ana the CM from [facility] will do the follow up appt for the pt.
--- NOTE | 2019-06-07 14:40 | NUR ---
Spoke with Rohini from Dr. Almeida's clinic and cancelled the appt for 06/12/19 since pt is going to SNF for the next 10 days.
--- NOTE | 2019-06-07 15:10 | NUR ---
Pt is going to [facility] 17 D per Heather and the accepting MD is Dr. Muller.
--- NOTE | 2019-06-07 15:21 | NUR ---
Transportation arranged with [facility] . Pt will be picked up at 1930 and transported to [place] [id number]. Pt is going to room 17 D and the accepting MD is Dr. Muller. ICU CN Dyan notified.
--- NOTE | 2019-06-07 15:23 | NUR ---
Spoke with Riky from [facility] and informed him that the pt will be picked up here in the hospital at 1930. Notified Riky to make sure the renal case manager there will make the follow up appt. within 1 week after discharge to see Dr. Jg Garcia and Dr. Torres. Riky will give the order to their renal case manager.
--- NOTE | 2019-06-07 16:10 | NUR ---
CALLED [facility], REPORT GIVEN TO MAE. MADE HER AWARE OF PT'S ABG ON ROOM AIR. MADE HER AWARE PT'S O2 REQUIREMENTS.
[2019-06-07] MEDS ORDERED: FUROSEMIDE 40 MG TAB PO SCH (17:00)
--- NOTE | 2019-06-07 17:30 | NUR ---
CALLED [facility], MADE SURE PT WILL BE GOING WITH [facility].
--- NOTE | 2019-06-07 18:00 | NUR ---
DR MARQUES Canas SEEN PT. EVAN GARCIA UNDER DR MOHAN SUPERVISION. GAUZE AND PRESSURE APPLIED. NO BLEEDING NOTED.
--- NOTE | 2019-06-07 19:30 | NUR ---
RECEIVED REPORT FROM RAISA LUJAN FOR CONTINUITY OF CARE. VS STABLE AT THIS TIME. PT DENIES PAIN. AFEBRILE. PERRL. PT ABLE TO MAKE NEEDS KNOWN. SPEAKS AND UNDERSTANDS BELIZEAN WELL. S1+ S2 HEARD. SR ON MONITOR. PULSES PALPABLE IN ALL EXTREMITIES. DENIES CHEST PAIN. LUNG SOUNDS CLEAR. DENIES SOB. PT ON OXIMIZER AT 2L/MIN. OXYGEN SATURATION WNL. KEPT HOB AT 30 DEGREES. ABDOMEN ROUND, SOFT AND NONDISTENDED. DENIES ANY ABDOMINAL DISCOMFORT. BS ACTIVE IN ALL QUADRANTS. PT HAS BRIDGES CATHETER IN PLACE THAT IS DRAINING CLEAR AND PALE YELLOW URINE. PT DENIES ANY DISCOMFORT FROM THE BRIDGES CATHETER SITE. SITE OF THE REMOVED SWAN-LACY HAS NO BLEEDING NOTED. KEPT BED AT A LOW POSSIBLE POSITION. ALL SAFETY PRECAUTIONS ARE KEPT IN PLACE. WILL CONTINUE TO MONITOR PT.
--- NOTE | 2019-06-07 19:37 | NUR ---
CALLED [facility] TO F/U TRANSFER PICKUP, SPOKE WITH SAMEERA, UPDATED ETA TO 2100.
--- NOTE | 2019-06-07 21:08 | NUR ---
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 [facility] ARRIVED IN THE UNIT.
--- NOTE | 2019-06-07 21:10 | NUR ---
PT WAS ASKING FOR HER DINOSAUR BAG. ACCORDING TO PT THIS BAG CONTAINED HER MEDICATIONS. SHE WAS ALSO ASKING FOR HER BAG OF CLOTHES. CHECKED THE BEDSIDE CABINETS AND NONE WAS FOUND. THE ONLY BAG AT BEDSIDE WAS A PLASTIC BAG THAT CONTAINS HER HOME MEDICATIONS. CHECKED WITH [facility] AND NO ADDITIONAL BELONGINGS WERE FOUND THERE. EXPLAINED THIS TO PT AND SHE STATED "IF YOU COULD NOT FIND IT, THAT IS OKAY."
--- NOTE | 2019-06-07 21:18 | NUR ---
BRIDGES CATHETER DISCONTINUED. CATHETER WAS INTACT. NO C/O OF ANY DISCOMFORT. EMPTIED BRIDGES CATHETER OF PALE YELLOW URINE. TOTAL OUTPUT WAS 300ML.
--- NOTE | 2019-06-07 21:25 | NUR ---
PT LEFT THE UNIT WITH [facility]. PT'S BELONGINGS AT BEDSIDE WAS HANDED TO [facility].
== END 2019-06-07 21:25 | DRG 469 ==
LOC: MED 18:31 → MTU 19:09 → MMU 20:55 → MIC 06-06 10:31
PROVIDERS: ADMIT Internal Medicine Pulmonary Disease; ATTEND Internal Medicine Pulmonary Disease
PROC: 02HQ32Z Insertion of Monitoring Device into Right Pulmonary Artery, Percutaneous Approach (ICD-10-PCS; principal; 2019-06-06)
DX: N17.0 Acute kidney failure with tubular necrosis (principal); J96.01 Acute respiratory failure with hypoxia; I50.33 Acute on chronic diastolic (congestive) heart failure; E43 Unspecified severe protein-calorie malnutrition; J96.02 Acute respiratory failure with hypercapnia; E66.01 Morbid (severe) obesity due to excess calories; I27.21 Secondary pulmonary arterial hypertension; E11.21 Type 2 diabetes mellitus with diabetic nephropathy; E11.9 Type 2 diabetes mellitus without complications; D64.9 Anemia, unspecified; E11.22 Type 2 diabetes mellitus with diabetic chronic kidney disease; I13.10 Hypertensive heart and chronic kidney disease without heart failure, with stage 1 through stage 4 chronic kidney disease, or unspecified chronic kidney disease; E77.8 Other disorders of glycoprotein metabolism; I25.5 Ischemic cardiomyopathy; J44.1 Chronic obstructive pulmonary disease with (acute) exacerbation; I25.10 Atherosclerotic heart disease of native coronary artery without angina pectoris; N18.3 Chronic kidney disease, stage 3 (moderate); E11.319 Type 2 diabetes mellitus with unspecified diabetic retinopathy without macular edema; F17.210 Nicotine dependence, cigarettes, uncomplicated; I42.9 Cardiomyopathy, unspecified; Z68.44 Body mass index [BMI] 60.0-69.9, adult; Z87.01 Personal history of pneumonia (recurrent)
CPT/HCPCS: 36415; 36600; 71045; 80048; 80053; 82728; 82803; 82948; 83540; 83735; 83880; 84100; 84484; 85025; 87081; 87804; 93308; 93970; 94660; 96374; 97110; 97112; 97116; 97161-GP; 97530; 99285; J0360; J0696; J1644; J1815; J1940; J2405; J7030; J7060; P9046; Q0092

== ENCOUNTER 2019-06-08 07:23 | Inpatient (IN) | payer OTHER ==
[~2019-06-08] VITALS: Ht 175.3 cm; Wt 158.8 kg
[~2019-06-08 07:23] MED LIST changes: +ALOG25TA2 PO; +ATOR20TA PO; +CARV6.25 PO; +FURO40TA9 PO; +HYDR-1098 PO; -METF500T2 PO; +METO5TAB9 PO; +MONT10TA35 PO; +SILD20TA PO; +VITA1TAB44 PO; +VITD1000 PO; +[UNRECOGNIZED DRUG - CODE] TP
[2019-06-08 07:31] VITALS: BP 184/65
--- NOTE | 2019-06-08 07:35 | NUR ---
PATIENT SUZIE FROM [facility], WITH C/O SOB X 1 NIGHT, WAS DISCHARGED FROM HERE TWO DAYS AGO, STATED FEELING BETTER AFTER USING O2, DENIES PAIN, DENIES N/V/D; GENERALIZED PITTING EDEMA NOTED, GENERALIZED WEAKNESS NOTED, DRY COUGH NOTED, CRAKLES LUNG SOUND TO RIGHT SIDE, AND DIMINISHED LUNG SOUND TO LEFT SIDE, SR WITH PVC'S NOTED ON MARRIAGE AND FAMILY COUNSELOR, AFRABILE, ELEVATED BP NOTED; PATIENT POSITIONED FOR COMFORT; HOB ELEVATED; BEDRAILS UP X2; BED DOWN. ER MD MADE AWARE OF PT STATUS.
--- NOTE | 2019-06-08 07:54 | NUR ---
Patient being evaluated by physician at bedside.
[2019-06-08] MEDS ORDERED: methylPREDNISolone SS 125 MG/2 ML VIAL IVP ONE (08:00)
[2019-06-08] MEDS ORDERED: ENALAPRILAT 2.5 MG/2 ML VIAL IVP ONE (08:00)
[2019-06-08] MEDS ORDERED: ALBUTEROL 0.083% 2.5 MG/3 ML NEBU INH ONE (08:00)
[2019-06-08] MEDS ORDERED: FUROSEMIDE 100 MG/10 ML VIAL IVP ONE (08:00)
[2019-06-08] MEDS ORDERED: IPRATROPIUM 0.02% 0.5 MG/2.5 ML NEBU INH ONE (08:00)
[2019-06-08] MEDS ORDERED: NITROGLYCERIN 2% 1 GM PKT TP ONE (08:00)
--- NOTE | 2019-06-08 08:40 | NUR ---
IV INSERTED TO RIGHT HAND, IV MEDICATION GIVEN, PT TOLERATED WELL, LAB COLLECTED AND SENT TO LAB.
--- NOTE | 2019-06-08 09:00 | NUR ---
# 16 FR Trevino catheter with 10 ml utilizing sterile technique. Immediate return of 500 ml CLEAR YELLOW urine noted. Bedside drainage bag placed below level of bladder. Urine sample collected and sent to lab. Pt tolerated procedure WELL.
[2019-06-08 09:31] LABS: CARBON DIOXIDE 23.1 mmol/L (21-32); POTASSIUM 4.1 mmol/L (3.5-5.1)
[2019-06-08 09:33] LABS: PROTHROMBIN TIME 9.3 secs (10.8-13.4)
[2019-06-08 09:42] LABS: TOTAL BILIRUBIN 0.4 mg/dL (0.0-1.0)
[2019-06-08 09:55] LABS: EOSINOPHILS # (AUTO) 0.2 K/uL (0-0.4); EOSINOPHILS % (AUTO) 6.1 % (0.0-4.0); HEMATOCRIT 24.9 % (36-48); HEMOGLOBIN 8.2 g/dL (12.0-16.0); LYMPHOCYTES # (AUTO) 0.7 K/uL (2.5-16.5); LYMPHOCYTES % (AUTO) 18.1 % (20.5-51.1); MEAN CORPUSCULAR HEMOGLOBIN 27 pg (27-31); MEAN CORPUSCULAR HGB CONC 33 g/dL (33-37); MEAN CORPUSCULAR VOLUME 83.4 fL (80-94); MONOCYTES # (AUTO) 0.2 K/uL (0.8-1.0); MONOCYTES % (AUTO) 5.9 % (1.7-9.3); NEUTROPHILS # (AUTO) 2.5 K/uL (1.8-7.7); NEUTROPHILS % (AUTO) 68.9 % (42.2-75.2); PLATELET COUNT (AUTO) 187 K/uL (140-450); RED BLOOD CELL COUNT(AUTO) 2.98 MIL/uL (4.20-5.40); RED CELL DISTRIBUTION WIDTH 15.4 % (11.6-13.7); WHITE BLOOD COUNT (AUTO) 3.6 K/uL (4.8-10.8)
--- NOTE | 2019-06-08 10:00 | NUR ---
PT IS RESTING IN BED, NO S/S OF DISTRESS, BP STILL ELEVATED, DENIES PAIN, WILL CONTINUE TO MONITOR.
--- NOTE | 2019-06-08 11:00 | NUR ---
DR. DAMON AT BEDSIDE EVALUATED PATIENT.
--- NOTE | 2019-06-08 11:00 | NUR ---
DISCHARGE PLANNING : 59 YRS OLD FEMALE WAS ADMITTED FROM [facility] WITH A DX OF COPD AND CHF RECENTLY WAS ADMITTED WITH SOB AND CHF AND SHE WAS DISCHARGED TO [facility] FOR REHAB . HX OF CKD STAGE 4 COPD AND PNA. CXR DONE SHOWS PLEURAL EFFUSION LASIX 80MG GIVEN O2 2L/NC NEPHROLOGY CONSULT FOR KIDNEY FUNCTION AND THORACENTESIS. D/C PLAN TO GO BACK TO REHAB Addendum: 06/12/19 at 1222 by Jennifer Thibodeaux CM DC PLANNING; CONTINUE DIURESIS , MONITOR RENAL FUNCTION, PER OYSTER PLANTER STABLE KIDNEY FUNCTION NO ACUTE DISTRESS MORE BENEFIT WITH REHAB SERVICES PER PT AND PT'S SISTER REQUEST FAXED ALL PAPER WORK TO [facility] AND CM/SS TO FOLLOW Addendum: 06/12/19 at 1224 by Jennifer Thibodeaux CM D/C PLANNING 06/11/19 [facility] HAS NO BED, FAXED TO [facility] , CM TO FOLLOW
[2019-06-08] MEDS ORDERED: ACETAMINOPHEN 325 MG TAB PO PRN (11:30)
[2019-06-08] MEDS ORDERED: DOCUSATE SODIUM 250 MG GELCAP PO PRN (11:30)
[2019-06-08] MEDS ORDERED: LORazepam 2 MG/ML VIAL IVP PRN (11:30)
[2019-06-08] MEDS ORDERED: ACETAMINOPHEN 650 MG SUPP RC PRN (11:30)
[2019-06-08] MEDS ORDERED: ZOLPIDEM 5 MG TAB PO PRN (11:30)
[2019-06-08] MEDS ORDERED: ONDANSETRON 4 MG/2 ML VIAL IVP PRN (11:30)
[2019-06-08] MEDS ORDERED: diphenhydrAMINE 50 MG/ML VIAL IVP PRN (11:30)
[2019-06-08] MEDS ORDERED: MORPHINE SULFATE 2 MG/ML SYR IVP PRN (11:30)
[2019-06-08] MEDS ORDERED: guaiFENesin DM 200/20 MG-10 ML 10 ML UDC PO PRN (11:30)
[2019-06-08] MEDS ORDERED: MAG SULF 2000 MG/WATER PREMIX 50 ML IV PRN (11:30)
[2019-06-08] MEDS ORDERED: ALUMINUM HYD/MAG/SIMETHICONE 30 ML UDC PO PRN (11:30)
[2019-06-08] MEDS ORDERED: cloNIDine 0.1 MG TAB PO PRN (11:30)
[2019-06-08] MEDS ORDERED: POTASSIUM CHLORIDE 10 MEQ TABER PO PRN (11:30)
[2019-06-08] MEDS ORDERED: SODIUM PHOSPHATE 118 ML ENEM RC PRN (11:30)
[2019-06-08] MEDS ORDERED: HYDROcodone/APAP 5/325 MG 1 TAB TAB PO PRN ×2 (11:30)
[2019-06-08] MEDS ORDERED: BISACODYL 10 MG SUPP RC PRN (11:30)
[2019-06-08] MEDS ORDERED: MAGNESIUM OXIDE 400 MG TAB PO PRN (11:30)
--- NOTE | 2019-06-08 11:45 | NUR ---
PT ARRIVED ON THE UNIT RECEIVED REPORT FROM PM RN. ORIENTED PT TO ROOM. PT PERSONAL BELONGINGS AND MEDICATIONS OBTAINED. PT ONLY HAS HOME MEDS NO OTHER PERSONAL BELONGINGS. OBTAINED VITALS MRSA SWAB. 142/84 HEART RATE 74 SPO2 93% ON 2L NASAL CANULA. TEMP 97.7. ALL SAFETY MEASURES ARE IN PLACE WILL CONTINUE TO MONITOR.
--- NOTE | 2019-06-08 11:45 | NUR ---
Pt transferred to Tele via [employer], REPORT GIVEN TO RAISA POWELL AT BEDSIDE, PT IS RESTING IN BED, NO S/S OF DISTRESS, DENIES PAIN, TELE BOX PLACED, ALL BELONGS GOES WITH PT, NO ACCIDENT OCCUR.
[2019-06-08] MEDS: SILDENAFIL 20 MG TAB PO SCH ×2 (13:44→17:08)
[2019-06-08] MEDS: FUROSEMIDE 100 MG/10 ML VIAL IVP SCH ×2 (13:45→20:10)
--- NOTE | 2019-06-08 13:46 | NUR ---
FREQUENT ROUNDING ON PT PT APPEARS STABLE AND IN NO APPARENT DISTRESS. ALL SAFETY MEASURES ARE IN PLACE WILL CONTINUE TO MONITOR
--- NOTE | 2019-06-08 15:37 | NUR ---
FREQUENT ROUNDING ON PT PT APPEARS STABLE AND IN NO APPARENT DISTRESS. ALL SAFETY MEASURES ARE IN PLACE PT HAS 2L 02 VIA NASAL CANULA. WILL CONTINUE TO MONITOR
[2019-06-08 16:00] VITALS: BP 145/74
--- NOTE | 2019-06-08 18:33 | NUR ---
FREQUENT ROUNDING ON PT PT APPEARS STABLE AND IN NO APPARENT DISTRESS. ALL SAFETY MEASURES ARE IN PLACE WILL CONTINUE TO MONITOR
--- NOTE | 2019-06-08 19:24 | NUR ---
endorsed pt to pm rn pt appears stable and in no apparent distress. all safety measures are in place
--- NOTE | 2019-06-08 19:25 | NUR ---
Received endorsement from AM shift RN; patient A/Ox4, able to make needs known, Russian speaking, on bedrest. Introduced self, updated board. No SOB or distress noted, on O2 2LPM via nasal cannula. IV site noted on right hand, 22 gauge, saline locked. Trevino in place. Bed in the lowest position, call light within reach. Initial assessment done. Will continue to monitor.
[2019-06-08 20:00] VITALS: BP 161/65
[2019-06-08] MEDS: CARVEDILOL 6.25 MG TAB PO SCH (20:09)
[2019-06-08] MEDS: ATORVASTATIN 20 MG TAB PO SCH (20:09)
--- NOTE | 2019-06-08 20:30 | NUR ---
Vitals taken, BP 161/65. Will medicate as ordered for elevated BP.
--- NOTE | 2019-06-08 21:20 | NUR ---
Due meds given, tolerated well.
--- NOTE | 2019-06-08 23:10 | NUR ---
Vitals taken, no SOB or distress noted.
[2019-06-09] VITALS: BP 154/56
--- NOTE | 2019-06-09 01:30 | NUR ---
Rounds done; patient asleep, eyes closed, visible chest rise and fall noted.
--- NOTE | 2019-06-09 02:35 | NUR ---
Checks made; patient resting comfortably, visible chest rise and fall noted.
[2019-06-09 04:00] VITALS: BP 162/66
--- NOTE | 2019-06-09 04:01 | NUR ---
Vitals taken; BP 162/66. Will administer Lasix as ordered. Will continue to monitor. Addendum: 06/09/19 at 0533 by Urbano Knutson RN BP rechecked; BP 156/52. Will continue to monitor.
[2019-06-09] MEDS: ALBUTEROL 0.083% 2.5 MG/3 ML NEBU INH PRN (04:02)
[2019-06-09] MEDS: IPRATROPIUM 0.02% 0.5 MG/2.5 ML NEBU INH PRN (04:02)
[2019-06-09] MEDS: FUROSEMIDE 100 MG/10 ML VIAL IVP SCH ×3 (04:03→21:09)
--- NOTE | 2019-06-09 04:40 | NUR ---
Patient asleep, visible chest rise and fall noted.
--- NOTE | 2019-06-09 06:07 | NUR ---
Vitals stable, due meds given. Will endorse to AM shift RN for continuity of care.
[2019-06-09 07:09] LABS: ANION GAP 12.2 (8-16); CARBON DIOXIDE 23.9 mmol/L (21-32); CREATININE 2.2 mg/dL (0.6-1.3); POTASSIUM 4.1 mmol/L (3.5-5.1)
--- NOTE | 2019-06-09 07:30 | NUR ---
RECEIVED BEDSIDE REPORT FROM CLIENT SERVICES MANAGER NURSE, PT IS AAOX4, ABLE TO FOLLOW COMMANDS AND MAKE NEEDS KNOWN, VSS, DENIES PAIN, NO S/S OF DISTRESS, DIMINISHED LUNG SOUNDS ANH. ON O2 AT 2L VIA NC, DENIES CHEST PAIN, SR ON TELE MONITOR, CAP REFILL <2 SEC. 2+ PITTING EDEMA NOTED TO BUE AND BLE. LARGE AND ROUND ABDOMEN WITH ACTIVE BOWEL SOUNDS, BRIDGES CATHETER IN PLACE WITH CLEAR YELLOW URINE VIA GRAVITY, ABLE TO MOVE ALL EXTREMITIES, GENERALIZED WEAKNESS NOTED. SKIN IS WARM AND DRY TO TOUCH, NO OPEN WOUND, IV SITE TO RIGHT HAND, 22GA, PATENT AND SL. EXPLAINED POC TO PATIENT, PATIENT VERBALIZED UNDERSTANDING, HOB ELEVATED 30 DEGREES, SAFETY MEASURES IN PLACE, CALL LIGHT WITHIN REACH, WILL CONTINUE TO MONITOR.
[2019-06-09 08:00] VITALS: BP 160/65
[2019-06-09] MEDS: MONTELUKAST SODIUM 10 MG TAB PO SCH (08:41)
[2019-06-09] MEDS: VIT-B COMP/VIT-C/FOLIC ACID 1 TAB PO SCH (08:41)
[2019-06-09] MEDS: SILDENAFIL 20 MG TAB PO SCH ×3 (08:41→17:05)
[2019-06-09] MEDS: CARVEDILOL 6.25 MG TAB PO SCH ×2 (08:41→21:10)
[2019-06-09] MEDS: CHOLECALCIFEROL 1,000 IU TAB PO SCH (08:42)
--- NOTE | 2019-06-09 08:44 | NUR ---
PATIENT HAS BEEN SCREENED AND CATEGORIZED MODERATE NUTRITION RISK. PATIENT WILL BE SEEN WITHIN 3-5 DAYS OF ADMISSION. 06/12/[address]
[2019-06-09] MEDS ORDERED: METOLAZONE 5 MG PO SCH (09:00)
--- NOTE | 2019-06-09 09:00 | NUR ---
SCHEDULED MEDICATION GIVEN, PT ABLE TO SWALLOW PILLS AND TOLERATED WELL.
--- NOTE | 2019-06-09 09:40 | NUR ---
AWAKE AND ALERT VERBALLY RESPONSIVE DENIES SOB GOOD CHEST RISE NO PRN THERAPY REQUIRED AT THIS TIME
[2019-06-09] MEDS ORDERED: DEXTROSE 50% 50 ML SYR IVP PRN (11:05)
[2019-06-09] MEDS: BLOOD GLUCOSE MONITORING 1 DEV DEV FS SCH ×3 (11:42→21:20)
[2019-06-09] MEDS: INSULIN LISPRO SLIDING SCALE 100 UNITS/ML VIAL SUBQ PRN ×2 (11:58→17:02)
[2019-06-09 12:00] VITALS: BP 124/55
--- NOTE | 2019-06-09 12:00 | NUR ---
PT IS RESTING IN BED, NO S/S OF DISTRESS, VSS, DENIES ANY PAIN.
[2019-06-09 16:00] VITALS: BP 152/60
--- NOTE | 2019-06-09 16:00 | NUR ---
PT IS WATCHING TV, NO S/S OF DISTRESS, VSS, DENIES PAIN, ACCU CHECK WITH 167 MG/DL AT THIS TIME.
--- NOTE | 2019-06-09 16:03 | NUR ---
SPOKE TO DR SARMIENTO AT [phone] HE SAID HE WAS UNAWARE ABOUT THE THORACENTESIS ORDERED FOR TOMORROW. HE SAID HE CAN DO IT DEPENDING ON HIS CASES TOMORROW AT THE [facility]. HE SAID HE WILL LOOK INTO THE CASES TOMORROW AND CONTACT ME BACK.
--- NOTE | 2019-06-09 18:33 | NUR ---
DR SARMIENTO CALLED ME BACK HE SAID HE WILL TRY AND DO IT TOMORROW, DEPENDS ON HIS ASSIGNMENTS TOMORROW BUT MOST LIKELY WILL DO IT. CONSENT IN THE CHART
--- NOTE | 2019-06-09 19:18 | NUR ---
RECEIVED BEDSIDE REPORT FROM RN DISEASE MANAGEMENT NURSE, PT IS AAOX4, ABLE TO FOLLOW COMMANDS AND MAKE NEEDS KNOWN, DENIES PAIN, NO S/S OF DISTRESS, ON O2 AT 2L VIA NC CONTINUOUS, DENIES CHEST PAIN, 2+ PITTING EDEMA NOTED TO BUE AND BLE. PT PER PREVIOUS SHIFT WILL HAVE THORACENTESIS TOMORROW. BRIDGES CATHETER IN PLACE WITH CLEAR YELLOW URINE VIA GRAVITY, ABLE TO MOVE ALL EXTREMITIES, GENERALIZED WEAKNESS NOTED. IV SITE TO RIGHT HAND, 22GA, PATENT AND SL. CALL LIGHT WITHIN REACH, WILL CONTINUE TO MONITOR. Addendum: 06/10/19 at 0031 by Kadi Cardenas RN AMEND NOTE- WRONG TIME
--- NOTE | 2019-06-09 19:19 | NUR ---
REPORT GIVEN TO MANAGER GAMING NURSE FOR CONTINUE OF CARE, PT IS IN STABLE CONDITION AT THIS TIME.
--- NOTE | 2019-06-09 19:20 | NUR ---
RECEIVED BEDSIDE REPORT FROM LEGAL SUPPORT SPECIALIST NURSE, PT IS AAOX4, ABLE TO FOLLOW COMMANDS AND MAKE NEEDS KNOWN, DENIES PAIN, NO S/S OF DISTRESS, ON O2 AT 2L VIA NC CONTINUOUS, DENIES CHEST PAIN, 2+ PITTING EDEMA NOTED TO BUE AND BLE. PT PER PREVIOUS SHIFT WILL HAVE THORACENTESIS TOMORROW. BRIDGES CATHETER IN PLACE WITH CLEAR YELLOW URINE VIA GRAVITY, ABLE TO MOVE ALL EXTREMITIES, GENERALIZED WEAKNESS NOTED. IV SITE TO RIGHT HAND, 22GA, PATENT AND SL. CALL LIGHT WITHIN REACH, WILL CONTINUE TO MONITOR.
[2019-06-09] MEDS: ATORVASTATIN 20 MG TAB PO SCH (21:09)
--- NOTE | 2019-06-09 21:23 | NUR ---
CHECKED ON PATIENT NO COMPLAINTS AT THIS TIME. PT ON HER CELL PHONE, TRYING TO GET SOME SLEEP
--- NOTE | 2019-06-09 23:00 | NUR ---
PT ASLEEP, NO RESPIRATORY DISTRESS NO PAIN NOTED. WILL CONTUNUE TO MONITOR PT
[2019-06-09 23:50] VITALS: BP 153/48
--- NOTE | 2019-06-10 00:13 | NUR ---
BRIDGES CATHETER CARE DONE, PT CLEANED AND CHANGED
--- NOTE | 2019-06-10 02:00 | NUR ---
PT TURNED TO SIDE, WITH PT'S HELP, PLACED SOME PILLOWS
--- NOTE | 2019-06-10 03:32 | NUR ---
CHECKED ON PATIENT, UNPRODUCTIVE COUGH NOTED; PT SAID SHE'S OK WITH DX: CHF
[2019-06-10 04:00] VITALS: BP 155/62
[2019-06-10] MEDS: FUROSEMIDE 100 MG/10 ML VIAL IVP SCH ×3 (05:10→20:32)
[2019-06-10 06:17] LABS: BASOPHILS % (AUTO) 0.4 % (0.0-2.0); EOSINOPHILS # (AUTO) 0.1 K/uL (0-0.4); EOSINOPHILS % (AUTO) 1.5 % (0.0-4.0); HEMATOCRIT 23.3 % (36-48); HEMOGLOBIN 7.6 g/dL (12.0-16.0); LYMPHOCYTES # (AUTO) 0.9 K/uL (2.5-16.5); LYMPHOCYTES % (AUTO) 13.7 % (20.5-51.1); MEAN CORPUSCULAR HEMOGLOBIN 27 pg (27-31); MEAN CORPUSCULAR HGB CONC 33 g/dL (33-37); MEAN CORPUSCULAR VOLUME 83.4 fL (80-94); MONOCYTES # (AUTO) 0.3 K/uL (0.8-1.0); MONOCYTES % (AUTO) 4.8 % (1.7-9.3); NEUTROPHILS # (AUTO) 5.1 K/uL (1.8-7.7); NEUTROPHILS % (AUTO) 79.6 % (42.2-75.2); PLATELET COUNT (AUTO) 200 K/uL (140-450); RED BLOOD CELL COUNT(AUTO) 2.79 MIL/uL (4.20-5.40); WHITE BLOOD COUNT (AUTO) 6.4 K/uL (4.8-10.8)
[2019-06-10 06:46] LABS: ANION GAP 12.7 (8-16); CARBON DIOXIDE 23.5 mmol/L (21-32); CREATININE 2.2 mg/dL (0.6-1.3); POTASSIUM 4.2 mmol/L (3.5-5.1)
--- NOTE | 2019-06-10 06:46 | NUR ---
PT C/O OF LEAKING BRIDGES CATHETER IN THE URINARY MEATUS, CHECKED ON THE BRIDGES CATHETER; NOT SEEN LEAKING BUT INFORMED PT WILL MONITOR, AND PROBABLY LEAKING DUE TO CATHETER SIZE IS SMALL
--- NOTE | 2019-06-10 06:48 | NUR ---
PT A, A O X 4., PT ON BEDREST W/ BRIDGES CATHETER, DRAINING YELLOW URINE,FOR MONITORING PER PT IT IS LEAKING. PT IN STABLE CONDITION. NO RESPIRATORY DISTRESS NO S/SX'S OF PAIN NOTED Addendum: 06/10/19 at 0657 by Kadi Cardenas RN PLS ADD IN THE NOTE: PT FOR THORACENTESIS TODAY
[2019-06-10 06:58] LABS: MAGNESIUM 1.7 mg/dL (1.8-2.4); PHOSPHORUS 4.2 mg/dL (2.5-4.9)
--- NOTE | 2019-06-10 07:15 | NUR ---
RECEIVED PATIENT VIA BED SIDE REPORT WITH MENHADEN FISHING CREW MEMBER NURSE, PATIENT LYING IN BED, AAX4, CALM AND NO DISTRESS NOTED. RIGHT AC SALINE LOCK NOTED, BRIDGES CATH INTACT, 2 L O2 NC, SAFETY MEASURES IN PACE, PLAN OF CARE DISCUSSED WITH PATIENT, PATIENT VERBALIZES UNDERSTANDING, WILL CONTINUE TO MONITOR
[2019-06-10] MEDS: BLOOD GLUCOSE MONITORING 1 DEV DEV FS SCH ×4 (07:30→20:33)
[2019-06-10 08:00] VITALS: BP 140/49
[2019-06-10] MEDS: VIT-B COMP/VIT-C/FOLIC ACID 1 TAB PO SCH (09:22)
[2019-06-10] MEDS: SILDENAFIL 20 MG TAB PO SCH ×3 (09:23→17:27)
[2019-06-10] MEDS: MONTELUKAST SODIUM 10 MG TAB PO SCH (09:23)
[2019-06-10] MEDS: CHOLECALCIFEROL 1,000 IU TAB PO SCH (09:23)
[2019-06-10] MEDS: CARVEDILOL 6.25 MG TAB PO SCH ×2 (09:27→20:33)
--- NOTE | 2019-06-10 09:30 | NUR ---
PATIENT LYING IN BED, BOYFRIEND AT THE BED SIDE. PATIENT IN MILD PAIN, UNABLE TO HAVE A BM IN 5 DAYS, BISACODYL 10MG SUPP GIVEN TO PATIENT WILL CONTINUE TO MONITOR.
[2019-06-10] MEDS: METOLAZONE 5 MG TAB PO SCH (09:44)
--- NOTE | 2019-06-10 11:35 | NUR ---
PATIENT LYING IN BED, NO RELIEF WITH BISACODYL 10MG SUPP. DISIMPACTED PATIENT, LARGE AMOUNTS OF HARD FECES NOTED. PATIENT NOW RELIEVED, NO DISTRESS NOTED. WILL CONTINUE TO MONITOR
[2019-06-10 12:00] VITALS: BP_SYST 138; BP_SYST 170; BP_DIAS 54; BP_DIAS 72
--- NOTE | 2019-06-10 13:40 | NUR ---
PATIENT SLEEPING AT BEDSIDE, NO DISTRESS NOTED, IV INTACT/PATENT, WILL CONTINUE TO MONITOR
[2019-06-10 14:00] VITALS: BP 145/58
[2019-06-10] MEDS: IPRATROPIUM 0.02% 0.5 MG/2.5 ML NEBU INH PRN (15:16)
[2019-06-10] MEDS: ALBUTEROL 0.083% 2.5 MG/3 ML NEBU INH PRN (15:17)
--- NOTE | 2019-06-10 15:45 | NUR ---
PATIENT LYING COMFORTABLE IN BED, NO DISTRESS NOTED. WILL CONTINUE TO MONITOR
--- NOTE | 2019-06-10 17:40 | NUR ---
PATIENT IN BED, DINNER AT BEDSIDE. PATIENT STATES FEELS BETTER, NO RESPIRATORY OR GI DISTRESS NOTED. WILL CONTINUE TO MONITOR.
--- NOTE | 2019-06-10 19:18 | NUR ---
GAVE END OF SHIFT REPORT TO ARCHITECTURAL SALES CONSULTANT NURSE, PATIENT IN STABLE CONDITION. NO DISTRESS NOTED.
--- NOTE | 2019-06-10 19:19 | NUR ---
RECEIVED BEDSIDE REPORT FROM DAY SHIFT NURSETAMARA. PATIENT LYING IN BED, AAX4, CALM AND NO DISTRESS NOTED. IV SITE ON RAC 22G, SALINE LOCK, PATENT NOTED, BRIDGES CATH INTACT, NO SOB OR ANY RESPIRATORY DISTRESS NOTED WITH 2 L O2 NC, SAFETY MEASURES IN PACE, PLAN OF CARE DISCUSSED WITH PATIENT, PATIENT VERBALIZES UNDERSTANDING, WILL CONTINUE TO MONITOR
[2019-06-10 20:00] VITALS: BP 106/77
[2019-06-10] MEDS: ATORVASTATIN 20 MG TAB PO SCH (20:32)
--- NOTE | 2019-06-10 20:32 | NUR ---
BS CHECKED, 144, NO INSULIN COVERAGE NEEDED. GIVEN LASIX AND LIPITOR MD ORDERED. HELD COREG D/T BP 106/77. PT TOLERATED WELL.
--- NOTE | 2019-06-10 22:05 | NUR ---
PT WANTS BEDPAN FOR BOWEL MOVEMENT BUT PT UNABLE TO DO AND IMPACTED, DISIMPACTED PATIENT, MEDIUM AMOUNTS OF HARD FECES NOTED. PATIENT NOW RELIEVED, NO DISTRESS NOTED. WILL CONTINUE TO MONITOR
[2019-06-11] VITALS (7 sets, daily range): BP systolic 119–149; BP diastolic 32–60
--- NOTE | 2019-06-11 00:10 | NUR ---
VS CHECKED, BP 119/32, REPORTED TO ON-CALL DR. SPENCER. NO ORDER RECEIVED. WILL CONTINUE TO MONITOR.
--- NOTE | 2019-06-11 05:11 | NUR ---
PT HAD SOFT, LARGE BM. CHANGED PT. PT TOLERATED WELL.
[2019-06-11] MEDS: FUROSEMIDE 100 MG/10 ML VIAL IVP SCH (05:52)
--- NOTE | 2019-06-11 05:52 | NUR ---
GIVEN LASIX MD ORDERED. PT TOLERATED WELL.
[2019-06-11] MEDS: BLOOD GLUCOSE MONITORING 1 DEV DEV FS SCH ×4 (06:21→21:33)
--- NOTE | 2019-06-11 06:21 | NUR ---
BS CHECKED, 118. NO INSULIN COVERAGE NEEDED. Addendum: 06/11/19 at 0744 by Asia Anderson RN DUPLICATED NOTE.
--- NOTE | 2019-06-11 06:21 | NUR ---
BS CHECKED, 118. NO INSULIN COVERAGE NEEDED.
--- NOTE | 2019-06-11 07:12 | NUR ---
RECEIVED REPORT FROM INSTRUCTOR MILITARY SCIENCE NURSE, PATIENT CALM RESTING IN THE BED. 2 L O2 NC NOTED. NO DISTRESS NOTED AT THIS TIME.
[2019-06-11] MEDS: CARVEDILOL 6.25 MG TAB PO SCH ×2 (09:06→21:37)
[2019-06-11] MEDS: MONTELUKAST SODIUM 10 MG TAB PO SCH (09:07)
[2019-06-11] MEDS: VIT-B COMP/VIT-C/FOLIC ACID 1 TAB PO SCH (09:07)
[2019-06-11] MEDS: SILDENAFIL 20 MG TAB PO SCH ×3 (09:07→17:24)
[2019-06-11] MEDS: METOLAZONE 5 MG TAB PO SCH (09:08)
[2019-06-11] MEDS: CHOLECALCIFEROL 1,000 IU TAB PO SCH (09:08)
--- NOTE | 2019-06-11 09:21 | NUR ---
MEDICATIONS GIVEN TO PATIENT, BRIDGES CATH CLEANED. PATIENT TOLERATED WELL, WILL CONTINUE TO MONITOR
--- NOTE | 2019-06-11 14:22 | NUR ---
06/11/19 RD INITIAL ASSESSMENT COMPLETED PLEASE REFER TO NUTRITION ASSESSMENT UNDER CARE ACTIVITY FOR ESTIMATED NUTRITIONAL NEEDS. 1. CONTINUE CARDIAC DIET WITH FLUID RESTRICTION OF 1000 ML/DAY TOLERATED 2. RD PROVIDED NUTRITION EDUCATION FOR CKD STAGES 1-4 AND CONSISTENT CARBOHYDRATE INTAKE. PT ACCEPTED EDUCATION 3. RD TO FOLLOW-UP 5-7 DAYS, LOW RISK MIGUEL ANGEL RIVERA, RD
[2019-06-11 15:02] LABS: ANION GAP 11.6 (8-16); CARBON DIOXIDE 25.8 mmol/L (21-32); CREATININE 2.2 mg/dL (0.6-1.3); POTASSIUM 4.4 mmol/L (3.5-5.1)
--- NOTE | 2019-06-11 15:02 | NUR ---
Discharge Plan: KITTY faxed clinicals to [facility] [phone]. KITTY contacted Noemí from [facility]. Per Noemí, [facility] has no female beds available. KITTY provided Lisa from [facility]. CRUZITO [phone] Addendum: 06/11/19 at 1716 by Chica Cordova CM Called Lisa with [facility] clinical information being reviewed. SOLITARIO to follow up tomorrow for available SNF bed. Addendum: 06/12/19 at 1208 by Get Vidal SOLITARIO Rodriguez received a phone call from Sharri Sheets, patient's [id number] [phone] stating that she spoke to [facility] who said there was a bed available. KITTY contacted [facility] and spoke to Noemí [phone]. Noemí stated that she will consult with her social insurance specialist department and verify bed availability for patient. KITTY contacted Sharri Sudeep to inform her that [facility] is checking bed availability. Sharri verbalized appreciation. KITTY will follow up with Noemí from [facility]. CRUZITO [phone] Addendum: 06/12/19 at 1324 by Get Vidal KITTY followed up with Noemí from [facility] [phone]. Noemí stated that there is no bed availability. KITTY informed Noemí that patient's sister, Sharri Sheets was under the impression that there was a bed available. Noemí stated that she would contact Sharri and inform her that there is no beds available. CRUZITO [phone] Addendum: 06/12/19 at 1525 by Get Vidal KITTY faxed patient's clinicals to [facility], [facility], [facility], and [facility]. Charity from [facility] stated that there is no bed availability. Nettie from [facility] called and stated that there is no bed availability. Anika from [facility] stated that they would be able to accept patient udlyndon Muller in Room 5A, and that a bariatric bed would need to be ordered. Anika said that a bariatric bed would be available after 7pm. KITTY contacted Sharri Sudeep [phone] to inform her that as of right now, only one facility has accepted patient. KITTY met with patient to discuss discharge plan. Patient was amenable to [facility]. KITTY contacted SOLITARIO Perez from [facility] and provided transport auth# [id number]. Ana stated that patient's stay at [facility] would be covered. KITTY/SOLITARIO will arrange transportation after 7PM. Addendum: 06/12/19 at 1557 by Get Vidal SS KITTY was given auth# for [facility]: [id number]. KITTY provided auth# to Anika at [facility]. No further needs identified.
--- NOTE | 2019-06-11 17:27 | NUR ---
SCHEDULED MEDS GIVEN TO PATIENT, PATIENT CALM TALKING TO A FRIEND AT THE BEDSIDE. NO DISTRESS NOTED. WILL CONTINUE TO MONITOR
--- NOTE | 2019-06-11 19:25 | NUR ---
RECEIVED BEDSIDE REPORT FROM DAY SHIFT NURSE. PATIENT IS AWAKE, ALERT, AND COOPERATIVE. RESPIRATION EVEN UNLABORED ON 2L O2 NC. NO DISTRESS NOTED. SKIN IS WARM AND DRY. IV PATENT AND INTACT. SALINE LOCK. DENIES PAIN. PLAN OF CARE WAS DISCUSSED. ALL SAFETY MEASURES IN PLACE. BED IS AT LOW POSITION. CALL LIGHT WITHIN REACH AND VERBALIZES ITS USE. WILL CONTINUE TO MONITOR.
--- NOTE | 2019-06-11 19:31 | NUR ---
END OF SHIFT REPORT GIVEN TO SILO ERECTOR NURSE, PATIENT IS IN STABLE CONDITION, NO DISTRESS NOTED.
--- NOTE | 2019-06-11 20:06 | NUR ---
INITIAL ASSESSMENT DONE. VITALS WERE TAKEN. ENDORSED PATIENT TO AKUA KLINE FOR CONTINUITY OF CARE.
[2019-06-11] MEDS: ALBUTEROL 0.083% 2.5 MG/3 ML NEBU INH PRN (20:08)
[2019-06-11] MEDS: IPRATROPIUM 0.02% 0.5 MG/2.5 ML NEBU INH PRN (20:08)
--- NOTE | 2019-06-11 20:10 | NUR ---
RECEIVED REPORT FROM OTHER INTERNETWORKING TECHNICIAN NURSE. AAOX4. NO C/O PAIN OR SOB. ON O2 AT 2L/MIN VIA NC. SKIN INTACT. PT HAS BLE EDEMA. IV TO RIGHT HAND #22G, SALINE LOCK. BRIDGES CATH IN PLACE, DRAINING LIGHT YELLOW URINE. SAFETY PRECAUTION IN PLACE. CALL LIGHT WITHIN REACH.
--- NOTE | 2019-06-11 20:14 | NUR ---
RECEIVED PATIENT ON 2L NASAL CANNULA, PULSE OX SAT 97%. PATIENT COMPLAINS OF FEELING SHORT OF BREATH. PRN BREATHING TREATMENT ADMINISTERED. TOLERATED TX WELL WITHOUT ADVERSE SIDE EFFECTS. PATIENT STATES TO BE "FEELING BETTER" POST TX. NO ACUTE RESPIRATORY DISTRESS NOTED AT THIS TIME. WILL CONTINUE TO MONITOR.
--- NOTE | 2019-06-11 21:30 | NUR ---
BLOOD SUGAR 140. NO INSULIN COVERAGE. DUE MEDS GIVEN. PT TOLERATED WELL.
[2019-06-11] MEDS: ATORVASTATIN 20 MG TAB PO SCH (21:37)
[2019-06-12] VITALS: BP 129/56
--- NOTE | 2019-06-12 00:20 | NUR ---
PT LYING IN BED, WATCHING TV. ALL NEEDS ATTENDED AT THIS TIME. CALL LIGHT WITHIN REACH.
--- NOTE | 2019-06-12 02:45 | NUR ---
PT SLEEPING, EASILY AROUSABLE. NO S/S OF PAIN OR DISCOMFORT. NO S/S OF RESP DISTRESS.
[2019-06-12 04:00] VITALS: BP 127/54
--- NOTE | 2019-06-12 04:30 | NUR ---
PT RESTING IN BED WITH EYES CLOSED. RESP EVEN AND UNLABORED. NO S/S OF PAIN OR DISCOMFORT.
--- NOTE | 2019-06-12 06:25 | NUR ---
PT BLOOD SUGAR 101. NO INSULIN COVERAGE.
[2019-06-12] MEDS: BLOOD GLUCOSE MONITORING 1 DEV DEV FS SCH ×4 (06:30→19:52)
[2019-06-12 06:48] LABS: ANION GAP 8.2 (8-16); CARBON DIOXIDE 28.5 mmol/L (21-32); CREATININE 2.1 mg/dL (0.6-1.3); POTASSIUM 4.7 mmol/L (3.5-5.1)
--- NOTE | 2019-06-12 07:15 | NUR ---
RECEIVED BEDSIDE REPORT FROM RELAY SHOP TESTER NURSE, PT IS AWAKE AND ALERT, NO S/S OF ACUTE DISTRESS NOTED. PT IS ON 2L O2 NC. PT GETTING A BREATHING TX AT THIS TIME. IV SITE NOTED R HAND 22 G, SALINE LOCKED. BRIDGES CATHETER IN PLACE. FLUID RESTRICTION 1000 ML/DAY. FALL PRECAUTIONS IN PLACE. CALL LIGHT IS WITHIN REACH.
--- NOTE | 2019-06-12 07:32 | NUR ---
ENDORSED PT TO DAY SHIFT NURSE. PT IN STABLE CONDITION.
[2019-06-12 08:00] VITALS: BP 160/57
--- NOTE | 2019-06-12 08:20 | NUR ---
PT EATING BREAKFAST, BOYFRIEND FELICITY IS AT BEDSIDE VISITING.
[2019-06-12] MEDS ORDERED: predniSONE 20 MG TAB PO SCH (09:00)
[2019-06-12] MEDS ORDERED: FUROSEMIDE 40 MG/4 ML VIAL IVP SCH (09:00)
[2019-06-12] MEDS ORDERED: FUROSEMIDE 40 MG TAB PO SCH (09:00)
[2019-06-12] MEDS: MONTELUKAST SODIUM 10 MG TAB PO SCH (09:39)
[2019-06-12] MEDS: CHOLECALCIFEROL 1,000 IU TAB PO SCH (09:40)
[2019-06-12] MEDS: VIT-B COMP/VIT-C/FOLIC ACID 1 TAB PO SCH (09:40)
[2019-06-12] MEDS: METOLAZONE 5 MG TAB PO SCH (09:41)
[2019-06-12] MEDS: CARVEDILOL 6.25 MG TAB PO SCH ×2 (09:41→20:19)
[2019-06-12] MEDS: SILDENAFIL 20 MG TAB PO SCH ×3 (09:41→16:48)
--- NOTE | 2019-06-12 09:45 | NUR ---
AM MEDS ADMINISTERED, PT TOLERATED WELL.
[2019-06-12 12:00] VITALS: BP 150/61
--- NOTE | 2019-06-12 13:58 | NUR ---
PT RESTING COMFORTABLY IN BED, NO S/S OF ACUTE DISTRESS NOTED, PT ATE 100% OF HER LUNCH
[2019-06-12 16:00] VITALS: BP 153/46
[2019-06-12] MEDS: IPRATROPIUM 0.02% 0.5 MG/2.5 ML NEBU INH PRN (16:14)
[2019-06-12] MEDS: ALBUTEROL 0.083% 2.5 MG/3 ML NEBU INH PRN (16:14)
--- NOTE | 2019-06-12 16:14 | NUR ---
PT GETTING A BREATHING TX AT THIS TIME.
[2019-06-12] MEDS: INSULIN LISPRO SLIDING SCALE 100 UNITS/ML VIAL SUBQ PRN ×2 (17:44→19:56)
--- NOTE | 2019-06-12 19:27 | NUR ---
ENDORSED PT TO SENIOR IT BUSINESS ANALYST NURSE IN STABLE CONDITION.
--- NOTE | 2019-06-12 19:50 | NUR ---
RECEIVED PT ON 2L NC WITH SP02 100% AND CLEAR BREATH SOUNDS. PT IS RESTING IN BED WITH NO RESPIRATORY DISTRESS. PT WAS INFORMED TO CALL RN WHEN EXPERIENCING SOB OR WHEEZING. WILL CONTINUE TO MONITOR PT.
--- NOTE | 2019-06-12 19:54 | NUR ---
JUST RECEIVED REPORT FROM LYNNE, DRYING MACHINE TENDER THROUGH CHARGE NURSE VIA PHONE CALL, THAT PT WILL BE DISCHARGED TONIGHT TO [facility]. PT INFORMED THAT SHE WILL BE DISCHARGED TONIGHT. Addendum: 06/12/19 at 2200 by Kadi Cardenas RN WRONG TIME LORENA WHITEHEAD
[2019-06-12 20:00] VITALS: BP 157/48
[2019-06-12] MEDS: ATORVASTATIN 20 MG TAB PO SCH (20:19)
--- NOTE | 2019-06-12 20:30 | NUR ---
REPORT GIVEN TO GARFIELD AT [facility].
--- NOTE | 2019-06-12 20:31 | NUR ---
RECEIVED BEDSIDE REPORT FROM AM SHIFT, RAISA ALVARADO. PT AWAKE ALERT, ORIENTED X 4. PT HAS BRIDGES CATHETER DRAINING YELLOW URINE. PT HAS AN IV ON THE RB HAND, BUT PT. C/O OF PAIN, LEAKING WHEN FLUSHED, IV REMOVED, WITH CANNULA INTACT. PLACED IN COMFORTABLE POSITION ON LOW BED, PLACED CALL LIGHT W/IN EASY REACH. POC DISCUSSED. WILL CONTINUE TO MONITOR
[2019-06-12] MEDS ORDERED: FURO-570 PO (20:39)
--- NOTE | 2019-06-12 20:45 | NUR ---
JUST RECEIVED REPORT FROM LYNNE, PATIENT SUPPORT ASSISTANT THROUGH CHARGE NURSE VIA PHONE CALL, THAT PT WILL BE DISCHARGED TONIGHT TO [facility]. PT INFORMED THAT SHE WILL BE DISCHARGED TONIGHT.
--- NOTE | 2019-06-12 20:55 | NUR ---
NON-EMERGENCY TRANSPORT ARRIVED IN THE UNIT. DISCHARGED PAPERS PROCESSED IMMEDIATELY, [facility] CONTACTED TO GIVE DISCHARGE REPORT.
--- NOTE | 2019-06-12 21:00 | NUR ---
PT CLEANED AND DRESSED UP FOR DISCHARGE, PT LOOKING FORWARD FOR THE DISCHARGE FOR PT SERVICES AND THAT SHE SAID SHE IS READY TO GO BACK HOME(SNF).
--- NOTE | 2019-06-12 21:05 | NUR ---
HOME MEDS AT PHARMACY PER PATIENT, WILL CONTACT HER SISTER WHO IS WORKING AT [facility] IF WE HAVE HER HOME MEDS AND GIVE IT TO HER SISTER. WILL ENDORSE TO CHARGE NURSE Am shift
--- NOTE | 2019-06-12 21:10 | NUR ---
PT TRANSFERRED TO [facility], PT IN STABLE CONDITION W/ BRIDGES CATHETER INTACT. W/O IVF. W/ 2 LPM VIA O2 CANNULA CONTINUOUS UPON TRANSPORT. ESCORTED TO EXIT.
== END 2019-06-12 21:10 | DRG 133 ==
LOC: MED 07:23 → MTU 11:12
PROVIDERS: ADMIT Internal Medicine Pulmonary Disease; ATTEND Internal Medicine Pulmonary Disease
DX: J96.21 Acute and chronic respiratory failure with hypoxia (principal); I50.33 Acute on chronic diastolic (congestive) heart failure; E44.0 Moderate protein-calorie malnutrition; E11.22 Type 2 diabetes mellitus with diabetic chronic kidney disease; N18.4 Chronic kidney disease, stage 4 (severe); I13.0 Hypertensive heart and chronic kidney disease with heart failure and stage 1 through stage 4 chronic kidney disease, or unspecified chronic kidney disease; J44.9 Chronic obstructive pulmonary disease, unspecified; D64.9 Anemia, unspecified; E66.01 Morbid (severe) obesity due to excess calories; Z68.43 Body mass index [BMI] 50.0-59.9, adult; Z88.8 Allergy status to other drugs, medicaments and biological substances; Z87.891 Personal history of nicotine dependence; Z87.01 Personal history of pneumonia (recurrent)
CPT/HCPCS: 36415; 51702; 71045; 76604; 80048; 80053; 82728; 82948; 83036; 83540; 83735; 83880; 84100; 84484; 85025; 85379; 85610; 85730; 87081; 93005; 94640; 96374; 96375; 99291; J1940; J2405; J2930; J3490; J7512; J7613; J7644; Q0092

== ENCOUNTER 2021-07-30 23:25 | Inpatient (IN) | payer OTHER, SELFPAY ==
[~2021-07-30] VITALS: Ht 165.1 cm; Wt 122.0 kg
[~2021-07-30 23:25] MED LIST changes: -ALOG25TA2 PO; -ATOR20TA PO; -CARV6.25 PO; +CARV6.252 PO; +CHOL1CRY3 MC; +ESCI10TA PO; +FERR325E14 PO; +FLO44 IH; -FURO40TA9 PO; -HYDR-1098 PO; -METO5TAB9 PO; -SILD20TA PO; -VITD1000 PO; -[UNRECOGNIZED DRUG - CODE] TP
[2021-07-30 23:29] VITALS: BP 178/100
--- NOTE | 2021-07-30 23:44 | NUR ---
61 y/o female, pt biba from home, states she is having abd pain that is radiating to her mid back states it started 1 hour prior to arrival. pt states she is also having nausea and vomiting. pmh: htn, copd, renal failure, dialysis (monday, , monday) allergy: acetaminophen, hydrocodone
[2021-07-31] MEDS ORDERED: ONDANSETRON 4 MG/2 ML VIAL IVP ONE (01:00)
[2021-07-31] MEDS ORDERED: MORPHINE SULFATE 10 MG/ML VIAL IVP ONE (01:00)
--- NOTE | 2021-07-31 01:05 | NUR ---
pt reported 10/10 pain, pt medicated per order.
[2021-07-31 01:20] LABS: BASOPHILS # (AUTO) 0.1 K/uL (0.00-0.22); BASOPHILS % (AUTO) 0.6 % (0.0-2.0); EOSINOPHILS % (AUTO) 0.2 % (0.0-4.0); HEMATOCRIT 33.9 % (36-48); HEMOGLOBIN 11.7 g/dL (12.0-16.0); LYMPHOCYTES % (AUTO) 10.5 % (20.5-51.1); MEAN CORPUSCULAR HEMOGLOBIN 33 pg (27-31); MEAN CORPUSCULAR HGB CONC 34 g/dL (33-37); MEAN CORPUSCULAR VOLUME 95.5 fL (80-94); MONOCYTES # (AUTO) 0.3 K/uL (0.8-1.0); MONOCYTES % (AUTO) 3.6 % (1.7-9.3); NEUTROPHILS # (AUTO) 8.2 K/uL (1.8-7.7); PLATELET COUNT (AUTO) 306 K/uL (140-450); RED BLOOD CELL COUNT(AUTO) 3.56 MIL/uL (4.20-5.40); RED CELL DISTRIBUTION WIDTH 14.6 % (11.6-13.7); WHITE BLOOD COUNT (AUTO) 9.6 K/uL (4.8-10.8)
--- NOTE | 2021-07-31 01:35 | NUR ---
BACK FROM CT.
[2021-07-31 01:36] LABS: NEUTROPHILS % (AUTO) 85.1 % (42.2-75.2)
[2021-07-31 01:40] LABS: ALBUMIN 3.9 g/dL (3.4-5.0); ANION GAP 23.2 (8-16); CARBON DIOXIDE 25.3 mmol/L (21-32); POTASSIUM 5.5 mmol/L (3.5-5.1); TOTAL BILIRUBIN 0.8 mg/dL (0.0-1.0)
[2021-07-31 01:47] LABS: CREATININE 9.2 mg/dL (0.6-1.3)
--- NOTE | 2021-07-31 02:50 | NUR ---
pt has eyes closed, opens eyes to touch. vss. pt is in stable condition. equal rise and fall of chest wall. all needs met at this time. bed locked in lowest position, side rails x2 for safety.
[2021-07-31] MEDS ORDERED: NACL 0.9% 1,000 ML IV ONE ×2 (04:05→04:20)
[2021-07-31] MEDS ORDERED: CHOL400C2 PO (04:15)
[2021-07-31] MEDS ORDERED: MONT10TA35 PO (04:15)
[2021-07-31] MEDS ORDERED: HYDR-1098 PO (04:15)
[2021-07-31] MEDS ORDERED: FOS500 PO (04:15)
[2021-07-31] MEDS ORDERED: CLON0.1T46 TD (04:15)
[2021-07-31] MEDS ORDERED: ESCI10TA PO (04:15)
[2021-07-31] MEDS ORDERED: CARV6.25 PO (04:15)
[2021-07-31] MEDS ORDERED: MORPHINE SULFATE 4 MG/ML SYR IVP ONE (04:30)
[2021-07-31] MEDS ORDERED: AMPICILLIN/SULBACTAM 3 GM in NACL 0.9% 100 ML IV ONE (04:30)
[2021-07-31] MEDS ORDERED: AMPICILLIN/SULBACTAM 3 GM VIAL ONE (04:40)
--- NOTE | 2021-07-31 04:50 | NUR ---
pt has eyes closed opens to sounds. vss. pt is in stable condition. all needs met at this time. bed locked in lowest position, side rails x2. at bedside.
--- NOTE | 2021-07-31 07:13 | NUR ---
Pt report given to shea stein. Transfer of care at this time.
--- NOTE | 2021-07-31 07:15 | NUR ---
report recieved from RAISA johnson for transfer of care
--- NOTE | 2021-07-31 07:22 | NUR ---
PT ADMITTED AT [address] CORCORAN TO TELE. PT CURRENTLY TELE HOLD IN ED BED 12
--- NOTE | 2021-07-31 08:05 | NUR ---
DR. CRUZ BEDSIDE EVALUATING PT
[2021-07-31] MEDS ORDERED: ONDANSETRON 4 MG/2 ML VIAL IVP PRN ×2 (08:15→18:00)
[2021-07-31] MEDS ORDERED: SODIUM PHOS / POTASSIUM PHOS 1 PKT PDR PO PRN (08:15)
[2021-07-31] MEDS ORDERED: POTASSIUM CHLORIDE 10 MEQ TABER PO PRN (08:15)
[2021-07-31] MEDS ORDERED: DOCUSATE SODIUM 100 MG GELCAP PO PRN (08:15)
[2021-07-31] MEDS ORDERED: LORazepam 2 MG/ML VIAL IM/IVP PRN (08:15)
[2021-07-31] MEDS ORDERED: MAG SULF 2000 MG/WATER PREMIX 50 ML IV PRN (08:15)
--- NOTE | 2021-07-31 08:40 | NUR ---
SURGICAL CONSENT SIGNED AND PLACED INTO PATIENT CHART
--- NOTE | 2021-07-31 09:17 | NUR ---
MEDICATION SPECIALIST AT PATIENT BEDSIDE
[2021-07-31] MEDS: LACTATED RINGERS 1,000 ML IV SCH ×2 (09:22→16:15)
--- NOTE | 2021-07-31 10:23 | NUR ---
RT BEDSIDE COLLECTING EKG
[2021-07-31] MEDS: ONDANSETRON 4 MG/2 ML VIAL IVP PRN (10:31)
--- NOTE | 2021-07-31 10:58 | NUR ---
# 16 FR NG tube placed to R nare. Placement checked by auscultation of instilled air into stomach and aspiration of gastric contents. Tubing taped in place to prevent dislodging. Patient tolerated WELL.
--- NOTE | 2021-07-31 11:00 | NUR ---
XRAY AT PATIENT BEDSIDE
--- NOTE | 2021-07-31 11:08 | NUR ---
NG TUBE NOT PLACED CORRECTLY AND NEEDED TO BE PULLED OUT. PT CURRENTLY REFUSING NG TUBE
--- NOTE | 2021-07-31 11:09 | NUR ---
RECEIVED REPORT FROM ER NURSE. AWAITING FOR PATIENT'S ARRIVAL
[2021-07-31 11:20] LABS: CHOL/HDL RATIO 1.9 (1-4.5); FREE T4 (FREE THYROXINE) 1.01 ng/dL (0.76-1.46); PHOSPHORUS 5.8 mg/dL (2.5-4.9); THYROID STIMULATING HORMONE 1.98 uIU/mL (0.34-3.74)
--- NOTE | 2021-07-31 11:20 | NUR ---
RECEIVED PATIENT FROM ER NURSE VIA [facility]QUEL. PT ADMITTED FOR ABDOMINAL HERNIA, POSSIBLE BOWEL OBSTRUCTION. PT IS AOX4, ABLE TO MAKE NEEDS KNOWN. RESPIRATIONS EVEN AND UNLABORED. ON ROOM AIR AND NO DISTRESS NOTED. SKIN WARM, DRY, AND INTACT. IV SITE ON LAC 20 INTACT AND PATENT. IVF INFUSING WELL. ABD IS SOFT, FLAT, AND DISTENDED. BOWEL SOUNDS ACTIVE IN ALL QUADRANTS. PT COMPLAINED OF ABD PAIN 7/10. WILL MEDICATED WITH PRN NEEDED. NG TUBE WAS IN PLACE IN ER BUT HAD TO BE REMOVED. EXPLAINED TO PATIENT THAT NG TUBE WILL NEED TO BE INSERTED AGAIN. PLAN OF CARE DISCUSSED. SAFETY PRECAUTIONS IN PLACE. CALL LIGHT WITHIN REACH. WILL CONTINUE TO MONITOR.
--- NOTE | 2021-07-31 11:27 | NUR ---
Patient will be admitted to care of DR. CORCORAN. Admited to TELE. Will go to room 125B. Belongings list completed. Report to RAISA BECKMAN.
[2021-07-31 12:00] VITALS: BP 152/55
--- NOTE | 2021-07-31 12:00 | NUR ---
PLACED NG TUBE. VERIFIED WITH AUSCULTATION AND HEARD SWOOSH. WILL ORDER CXR TO VERIFY PLACEMENT.
--- NOTE | 2021-07-31 12:30 | NUR ---
PATIENT HD TREATMENT WILL BE PLACED ON HOLD. PT WILL UNDERGO SURGERY BEFORE HAVING HD TREATMENT. SURGERY WILL BE DONE AT 1330
--- NOTE | 2021-07-31 13:29 | NUR ---
OR NURSES AT BEDSIDE PREPARING TO TRANSFER TO OR.
[2021-07-31 13:36] LABS: PROTHROMBIN TIME 9.3 secs (10.8-13.4)
[2021-07-31] MEDS ORDERED: MORPHINE PRES FREE 10 MG/10 ML AMP IV ONE (13:50)
[2021-07-31] MEDS ORDERED: BUPIVACAINE-MPF/EPI 0.25% 30 ML VIAL INJ ONE (13:57)
[2021-07-31] MEDS ORDERED: LIDOCAINE 1% 500 MG/50 ML VIAL ONE (13:57)
[2021-07-31] MEDS ORDERED: SEVOFLURANE 250 ML BTL INH ONE (14:00)
[2021-07-31] MEDS ORDERED: MIDAZOLAM 2 MG/2 ML VIAL ONE (14:12)
[2021-07-31] MEDS ORDERED: DEXAMETHASONE 4 MG/ML VIAL ONE (16:02)
[2021-07-31] MEDS ORDERED: ePHEDrine 50 MG/ML VIAL ONE (16:02)
[2021-07-31] MEDS ORDERED: PHENYLEPHRINE 10 MG/ML VIAL ONE (16:02)
[2021-07-31] MEDS ORDERED: PROPOFOL 200 MG/20 ML VIAL IV ONE (16:02)
[2021-07-31] MEDS ORDERED: ROCURONIUM 50 MG/5 ML VIAL IV ONE ×2 (16:02)
[2021-07-31] MEDS ORDERED: ETOMIDATE 20 MG/10 ML VIAL IVP ONE (16:02)
--- NOTE | 2021-07-31 16:18 | NUR ---
PATIENT IS STILL IN OR.
[2021-07-31] MEDS ORDERED: NEOSTIGMINE 1:1000 10 MG/10 ML VIAL ONE (16:36)
[2021-07-31] MEDS ORDERED: GLYCOPYRROLATE 0.2 MG/ML VIAL ONE ×2 (16:36)
[2021-07-31] MEDS ORDERED: HYDROmorphone 1 MG/ML AMP IVP PRN ×2 (18:00→19:40)
--- NOTE | 2021-07-31 18:30 | NUR ---
PATIENT CAME BACK FROM SURGERY. PT IS STABLE. NO RESPIRATORY DISTRESS NOTED. PT HAS DRESSING ON LOWER ABD WITH ABDOMINAL BINDER IN PLACE. NO DRAINAGE NOTED ON THE DRESSING. SAULO DRAIN IN PLACE. 40 CC WAS REMOVED BY OR NURSE. SEROSANGUINEOUS BLOOD NOTED. WILL ASSESS VS FOR THE NEXT 2 HOURS.
--- NOTE | 2021-07-31 19:15 | NUR ---
RECEIVED PATIENT FROM MORNING SHIFT RN. PT IS S/P ABDOMINAL HERNIA REPAIR. PT IS AAOX4, ROOM AIR, BEDREST, ABLE TO MAKE NEEDS KNOWN, RESPIRATIONS EVEN AND UNLABORED, NO DISTRESS NOTED, SKIN IS WARM, DRESSING ON THE RIGHT LOWER ABD CLEAN, DRY, AND INTACT. RIGHT SAULO DRAIN WITH ABDOMINAL BINDER. IV SITE ON LAC 20 INTACT AND PATENT. IVF INFUSING WELL WITH LR@125ML/HR. ABDOMEN IS SOFT, FLAT, AND DISTENDED. BOWEL SOUNDS ACTIVE IN ALL QUADRANTS. PT COMPLAINED OF ABDOMEN PAIN 8/10; WILL MEDICATED WITH PRN NEEDED. LEFT NG TUBE TO LOW INTERMITTENT SUCTION WAS IN PLACE. PLAN OF CARE DISCUSSED. SAFETY PRECAUTIONS IN PLACE. CALL LIGHT WITHIN REACH, BED IS IN LOWEST POSITION. WILL CONTINUE TO MONITOR.
--- NOTE | 2021-07-31 19:22 | NUR ---
ENDORSED TO GOVERNMENT INSTRUCTOR NURSE FOR CONTINUITY OF CARE. PT IS STABLE.
[2021-07-31 20:00] VITALS: BP 145/53
--- NOTE | 2021-07-31 23:32 | NUR ---
TEXTED DR CORCORAN REGARDING LR@125ML/HR, TEXTED BACK TO D/C LR
[2021-08-01] VITALS: BP 92/47
--- NOTE | 2021-08-01 00:34 | NUR ---
TEXTED DR CORCORAN FOR HEART BURN, RECEIVED ORDER FOR PROTONIX IVP 40MG DAILY
--- NOTE | 2021-08-01 01:05 | NUR ---
HEMODIALYSIS IS DONE WITH NO OUTPUT DUE TO SBPs WERE IN THE 90s. BP NOW IS 112/53, HR 102, 98% o2 SAT
[2021-08-01] MEDS: ONDANSETRON 4 MG/2 ML VIAL IVP PRN (01:18)
--- NOTE | 2021-08-01 01:18 | NUR ---
ADMINISTERED ZOFRAN 4MG IVP PRN DUE TO COMPLAINT OF NAUSEATED
[2021-08-01 04:00] VITALS: BP 133/51
[2021-08-01 06:29] LABS: HEMATOCRIT 27.2 % (36-48); HEMOGLOBIN 9.2 g/dL (12.0-16.0); LYMPHOCYTES # (AUTO) 0.3 K/uL (2.5-16.5); LYMPHOCYTES % (AUTO) 3.1 % (20.5-51.1); MEAN CORPUSCULAR HEMOGLOBIN 33 pg (27-31); MEAN CORPUSCULAR HGB CONC 34 g/dL (33-37); MEAN CORPUSCULAR VOLUME 97.5 fL (80-94); MONOCYTES # (AUTO) 0.4 K/uL (0.8-1.0); MONOCYTES % (AUTO) 4.6 % (1.7-9.3); NEUTROPHILS # (AUTO) 8.2 K/uL (1.8-7.7); NEUTROPHILS % (AUTO) 92.3 % (42.2-75.2); PLATELET COUNT (AUTO) 222 K/uL (140-450); RED BLOOD CELL COUNT(AUTO) 2.79 MIL/uL (4.20-5.40); WHITE BLOOD COUNT (AUTO) 8.9 K/uL (4.8-10.8)
[2021-08-01 06:58] LABS: ALBUMIN 2.5 g/dL (3.4-5.0); ANION GAP 17.3 (8-16); CARBON DIOXIDE 25.4 mmol/L (21-32); MAGNESIUM 1.9 mg/dL (1.8-2.4); POTASSIUM 4.7 mmol/L (3.5-5.1); TOTAL BILIRUBIN 0.8 mg/dL (0.0-1.0)
--- NOTE | 2021-08-01 06:59 | NUR ---
WILL ENDORSE TO DAY SHIFT NURSE FOR CONTINUITY OF CARE
[2021-08-01 07:07] LABS: CREATININE 5.3 mg/dL (0.6-1.3)
--- NOTE | 2021-08-01 07:30 | NUR ---
RECEIVED BEDSIDE REPORT FROM COURTESY CLERK NURSE FOR CONTINUITY OF CARE. PT IS STABLE.
[2021-08-01 08:00] VITALS: BP 128/58
[2021-08-01] MEDS: PANTOPRAZOLE 40 MG INJ VIAL IVP SCH (09:23)
--- NOTE | 2021-08-01 09:30 | NUR ---
ALL SCHEDULED MEDS GIVEN. PT IS STABLE. NO DISTRESS NOTED. WILL CONTINUE TO MONITOR.
[2021-08-01 12:00] VITALS: BP 118/57
--- NOTE | 2021-08-01 12:10 | NUR ---
CHECKED ON PATIENT. PT IS STABLE. NO DISTRESS NOTED. WILL CONTINUE TO MONITOR.
--- NOTE | 2021-08-01 13:00 | NUR ---
DR. OVERTON AT PATIENT'S BEDSIDE.
[2021-08-01] MEDS ORDERED: HYDROmorphone 1 MG/ML AMP IVP PRN (14:35)
[2021-08-01] MEDS ORDERED: traMADol 50 MG TAB PO PRN (14:35)
--- NOTE | 2021-08-01 14:59 | NUR ---
CHECKED ON PATIENT. PT IS STABLE. NO DISTRESS NOTED. WILL CONTINUE TO MONITOR.
[2021-08-01 16:00] VITALS: BP 109/52
[2021-08-01] MEDS ORDERED: PANTOPRAZOLE 40 MG INJ VIAL IVP SCH (17:40)
--- NOTE | 2021-08-01 18:15 | NUR ---
PT COMPLAINED OF HEARTBURN. ADMINISTERED ZOFRAN ONE TIME IVP
--- NOTE | 2021-08-01 19:36 | NUR ---
ENDORSED TO [employer] BUSINESS OBJECTS DEVELOPER NURSE FOR CONTINUITY OF CARE. PT IS STABLE.
--- NOTE | 2021-08-01 19:40 | NUR ---
RECEIVED REPORT FROM AM NURSE FOR CONTINUITY OF CARE. PT AWAKE A&OX4. NGT IN PLACE WITH 5ML OF SEROSANGUINOUS DRAINAGE. ABDOMINAL BINDER ON. DENIES PAIN AT THIS TIME. CALL LIGHT WITHIN REACH. ALL SAFETY MEASURES IN PLACE. WILL CONTINUE TO OBSERVE.
[2021-08-01 20:00] VITALS: BP 109/45
--- NOTE | 2021-08-01 21:10 | NUR ---
PT C/O SEVERE PAIN SHE WAS GIVEN IVP/PRN 0.25ML OF DILAUDID WILL MONITOR FOR PAIN RELIEF. PT C/O OF DISCOMFORT WITH HER NG TUBE. PT IS ON LOW INTERMITTENT SUCTION , HOWEVER THERE HAS BEEN NO OUTPUT. PT ALSO HAS SAULO DRAIN AND HAS 5 MLS OF SEROSANGUINEOUS DRAINAGE. TEXTED HOUSEMAID MD RODAS REGARDING IF WE CAN REMOVE THE NG TUBE AT THIS TIME AND PLACE PT ON CLEAR LIQUID DIET. AWAITING PT RESPONSE.
--- NOTE | 2021-08-01 22:40 | NUR ---
MD RODAS RESPONDED TO KEEP PT NPO AND KEEP NG TUBE UNTIL HIS ASSESSMENT IN THE AM.
[2021-08-02] VITALS: BP 114/60
--- NOTE | 2021-08-02 00:30 | NUR ---
PT C/O OF NG TUBE IS UNCOMFORTABLE, REMINDED HER THAT MD WILL REASSESS TOMORROW AND MOST LIKELY TAKE IT OUT. PT REMAINS ON 2 LITERS VIA N/C. V/S FOLLOWS: T 98.1 P 111 R 18 B/P 114/60 02 2 LITERS VIA N/C. WOUND PICS TAKEN 22 ANA INTACT WOUND BED IS CLEAN IT WAS CLEANED WITH NORMAL SALINE AND NEW DRY DRESSING PROVIDED. SAULO DRAIN INTACT WITH MINIMAL SEROSANGUINEOUS DRAINAGE. ALL ORDERED PRECAUTIONS IN PLACE.
[2021-08-02 04:00] VITALS: BP 109/45
--- NOTE | 2021-08-02 04:30 | NUR ---
PT IN BED RESTING NO C/O VOICED DENIES ANY PAIN V/S IN NORMAL LIMITS PT REMAINS ON 3 LITERS VIA N/C NO S/S OF APIN RODISTRESS NOTED.
--- NOTE | 2021-08-02 05:30 | NUR ---
DRESSINGS INTACT SAULO DRAINED 30MLS OF SEROSANGUINEOUS DRAINAGE.
[2021-08-02 06:24] LABS: BASOPHILS % (AUTO) 0.1 % (0.0-2.0); EOSINOPHILS % (AUTO) 0.1 % (0.0-4.0); HEMATOCRIT 26.7 % (36-48); HEMOGLOBIN 9.1 g/dL (12.0-16.0); LYMPHOCYTES # (AUTO) 0.5 K/uL (2.5-16.5); LYMPHOCYTES % (AUTO) 5.5 % (20.5-51.1); MEAN CORPUSCULAR HEMOGLOBIN 33 pg (27-31); MEAN CORPUSCULAR HGB CONC 34 g/dL (33-37); MEAN CORPUSCULAR VOLUME 97.2 fL (80-94); MONOCYTES # (AUTO) 0.5 K/uL (0.8-1.0); MONOCYTES % (AUTO) 5.2 % (1.7-9.3); NEUTROPHILS # (AUTO) 8.2 K/uL (1.8-7.7); NEUTROPHILS % (AUTO) 89.1 % (42.2-75.2); PLATELET COUNT (AUTO) 192 K/uL (140-450); RED BLOOD CELL COUNT(AUTO) 2.74 MIL/uL (4.20-5.40); RED CELL DISTRIBUTION WIDTH 14.8 % (11.6-13.7); WHITE BLOOD COUNT (AUTO) 9.2 K/uL (4.8-10.8)
[2021-08-02 06:41] LABS: ALBUMIN 2.5 g/dL (3.4-5.0); ANION GAP 19.2 (8-16); CARBON DIOXIDE 25.3 mmol/L (21-32); MAGNESIUM 2.1 mg/dL (1.8-2.4); POTASSIUM 5.5 mmol/L (3.5-5.1); TOTAL BILIRUBIN 1.2 mg/dL (0.0-1.0)
[2021-08-02 06:51] LABS: CREATININE 7.4 mg/dL (0.6-1.3)
--- NOTE | 2021-08-02 07:00 | NUR ---
RECEIVED PANIC VALUE OF BUN 7.4 AND CREATINE 65 NOT REPORT TO MD BECAUSE PT HAS HX OF ESRD AND IS ON HD 3X A WEEK.
[2021-08-02] MEDS: PANTOPRAZOLE 40 MG INJ VIAL IVP SCH (08:31)
[2021-08-02 09:36] VITALS: BP 137/70
--- NOTE | 2021-08-02 10:27 | NUR ---
Received patient in bed, NG tube in place. SAULO drainage intact. VSS. wound to abdomen intact, dressing changed by night nurse. seen by MD will continue to monitor.
[2021-08-02 12:44] VITALS: BP 117/35
--- NOTE | 2021-08-02 13:30 | NUR ---
WOUND CARE EVALUATION NOTES: REASON FOR EVALUATION: ABDOMINAL HERNIA S/P REPAIR. WOUND ASSESSMENT COMPLETED ON THIS 61 Y/O FEMALE ADMITTED TO [facility] FOR ABDOMINAL HERNIA, POSSIBLE SBO. PATIENT IS FROM HOME. PAST MEDICAL HISTORY INCLUDES ESRD ON HD, CHF, COPD, HYPERTENSION, MORBID OBESITY, UMBILICAL HERNIA. ALL ABOVE INFORMATION WAS OBTAINED FROM THE ADMISSION H&P. LABS ARE WBC 9.2, H/H 9.1/26.7, GLUCOSE 153, ALBUMIN 2.5. PATIENT IS AAOX3, VERBAL, APPROPRIATE AFFECT. SKIN IS WARM TO TOUCH. ABLE TO TURN SELF AND AMBULATE. RIGHT AV SHUNT INTACT, PATENT. PLAN OF WOUND CARE DISCUSSED WITH PATIENT AND PRIMARY RN. PATIENT VERBALIZED UNDERSTANDING. REINFORCEMENT NEEDED. PATIENT ADMITTED WITH ABDOMINAL HERNIA S/P OPEN REPAIR ON 07/31/21 COMORBIDITIES RELATED TO FURTHER SKIN BREAKDOWN SUCH DECREASED MOBILITY AND DECREASED FUNCTIONAL ABILITY, AND LOW ALBUMIN. INTEGUMENTARY: - S/P OPEN VENTRAL HERNIA REPAIR WITH MESH PLACED ON 07/31/21. WOUND MEASURING 8 X 0.2 X 0 CM WITH ANA INTACT. WOUND BED CLEAN, NO ERYTHEMA, NO DRAINAGE, NO ODOR. MADAI-WOUND PINK, INTACT. RECOMMENDATIONS: - S/P OPEN VENTRAL HERNIA REPAIR WITH MESH PLACED ON 07/31/21 - CLEANSE WITH NS, PAT DRY, COVER WITH DRY DRESSINGS, AND SECURE WITH PAPER TAPE DAILY AND PRN IF SOILED. - KEEP SKIN DRY AND CLEAN AT ALL TIMES. - RD CONSULT RECOMMENDATIONS DISCUSSED WITH PRIMARY RN. WILL FOLLOW-UP PATIENT Q7-10 DAYS AND PRN. PLEASE CONTACT WOUND CARE NURSE FOR ANY CONCERNS AND CHANGES IN WOUND CONDITION.
--- NOTE | 2021-08-02 14:50 | NUR ---
PT evaluation today, Incentive spirometer by RT given. Patient continue to be NPO. has not pass gas yet. will continue to monitor.
[2021-08-02] MEDS: EPOETIN ALFA-EPBX 10,000 UNITS/ML VIAL IV SCH (15:46)
[2021-08-02 16:00] VITALS: BP 122/45
[2021-08-02] MEDS: ZOLPIDEM 5 MG TAB PO PRN (22:46)
[2021-08-02 23:52] VITALS: BP 130/69
[2021-08-03] MEDS: GAUZE TP SCH ×2 (01:00→14:02)
[2021-08-03 04:00] VITALS: BP 128/70
--- NOTE | 2021-08-03 05:28 | NUR ---
patient vitals are stable. breathing is even and unlabored. she passed gas. she stated that she had insomnia. ambien was given . comfort and safety measures are provided.
[2021-08-03 06:15] LABS: BASOPHILS % (AUTO) 0.2 % (0.0-2.0); EOSINOPHILS # (AUTO) 0.1 K/uL (0-0.4); EOSINOPHILS % (AUTO) 0.9 % (0.0-4.0); HEMATOCRIT 24.5 % (36-48); HEMOGLOBIN 8.2 g/dL (12.0-16.0); LYMPHOCYTES # (AUTO) 0.7 K/uL (2.5-16.5); LYMPHOCYTES % (AUTO) 8.5 % (20.5-51.1); MEAN CORPUSCULAR HEMOGLOBIN 33 pg (27-31); MEAN CORPUSCULAR HGB CONC 34 g/dL (33-37); MEAN CORPUSCULAR VOLUME 97.8 fL (80-94); MONOCYTES # (AUTO) 0.3 K/uL (0.8-1.0); MONOCYTES % (AUTO) 3.5 % (1.7-9.3); NEUTROPHILS # (AUTO) 6.8 K/uL (1.8-7.7); NEUTROPHILS % (AUTO) 86.9 % (42.2-75.2); PLATELET COUNT (AUTO) 198 K/uL (140-450); RED CELL DISTRIBUTION WIDTH 14.8 % (11.6-13.7); WHITE BLOOD COUNT (AUTO) 7.8 K/uL (4.8-10.8)
[2021-08-03 07:01] LABS: ALBUMIN 2.3 g/dL (3.4-5.0); ANION GAP 17.1 (8-16); CARBON DIOXIDE 26.5 mmol/L (21-32); POTASSIUM 4.6 mmol/L (3.5-5.1); TOTAL BILIRUBIN 1.2 mg/dL (0.0-1.0)
[2021-08-03 07:07] LABS: CREATININE 5.5 mg/dL (0.6-1.3)
[2021-08-03 08:00] VITALS: BP 132/57
[2021-08-03] MEDS: EPOETIN ALFA-EPBX 10,000 UNITS/ML VIAL IV SCH (09:33)
[2021-08-03] MEDS: PANTOPRAZOLE 40 MG INJ VIAL IVP SCH (09:34)
--- NOTE | 2021-08-03 09:53 | NUR ---
Received patient in bed, seen by PT sat at edge of bed. Patient passed gas and Dr. Ruiz order to d/c NG tube. NGT out and am meds given. will continue to monitor.
--- NOTE | 2021-08-03 14:02 | NUR ---
patient in bed, denied pain, A/O x3. Wound care done, cleaned, dry, covered with gauze. Will continue to monitor.
[2021-08-03 16:00] VITALS: BP 104/45
[2021-08-03 20:00] VITALS: BP 112/62
[2021-08-03] MEDS: carvediloL 6.25 MG TAB PO SCH (21:58)
[2021-08-03] MEDS: ZOLPIDEM 5 MG TAB PO PRN (22:14)
[2021-08-04] VITALS: BP 116/67
[2021-08-04] MEDS: GAUZE TP SCH ×2 (01:00→12:40)
[2021-08-04 04:00] VITALS: BP 116/67
[2021-08-04 06:40] LABS: BASOPHILS % (AUTO) 0.1 % (0.0-2.0); EOSINOPHILS # (AUTO) 0.1 K/uL (0-0.4); EOSINOPHILS % (AUTO) 2.1 % (0.0-4.0); HEMATOCRIT 21.8 % (36-48); HEMOGLOBIN 7.4 g/dL (12.0-16.0); LYMPHOCYTES # (AUTO) 0.7 K/uL (2.5-16.5); LYMPHOCYTES % (AUTO) 10.5 % (20.5-51.1); MEAN CORPUSCULAR HEMOGLOBIN 33 pg (27-31); MEAN CORPUSCULAR HGB CONC 34 g/dL (33-37); MEAN CORPUSCULAR VOLUME 96.9 fL (80-94); MONOCYTES # (AUTO) 0.3 K/uL (0.8-1.0); NEUTROPHILS # (AUTO) 5.4 K/uL (1.8-7.7); NEUTROPHILS % (AUTO) 82.3 % (42.2-75.2); PLATELET COUNT (AUTO) 211 K/uL (140-450); RED BLOOD CELL COUNT(AUTO) 2.25 MIL/uL (4.20-5.40); RED CELL DISTRIBUTION WIDTH 14.6 % (11.6-13.7); WHITE BLOOD COUNT (AUTO) 6.5 K/uL (4.8-10.8)
[2021-08-04 07:02] LABS: ANION GAP 17.2 (8-16); CARBON DIOXIDE 25.3 mmol/L (21-32); MAGNESIUM 1.9 mg/dL (1.8-2.4); POTASSIUM 4.5 mmol/L (3.5-5.1); TOTAL BILIRUBIN 0.9 mg/dL (0.0-1.0)
--- NOTE | 2021-08-04 07:30 | NUR ---
RECEIVED BEDSIDE REPORT FROM MEDICAL RECORDS ASSISTANT NURSE. PT IS BREATHING UNLABORED AND EVEN. NO S/S OF DISTRESS. PT IS STABLE.
[2021-08-04 07:33] LABS: CREATININE 7.3 mg/dL (0.6-1.3)
[2021-08-04] MEDS: carvediloL 6.25 MG TAB PO SCH (09:34)
[2021-08-04] MEDS: PANTOPRAZOLE 40 MG INJ VIAL IVP SCH (09:34)
[2021-08-04] MEDS: EPOETIN ALFA-EPBX 10,000 UNITS/ML VIAL IV SCH (09:35)
[2021-08-04] MEDS ORDERED: TRAM50TA1 PO (10:18)
[2021-08-04] MEDS ORDERED: MIRABULK PO (10:18)
--- NOTE | 2021-08-04 10:30 | NUR ---
DIALYSIS BEGAN. PT BREATHING IS EVEN AND UNLABORED. NO S/S OF DISTRESS. PT IS STABLE.
--- NOTE | 2021-08-04 13:00 | NUR ---
PT IS BREATHING UNLABORED AND EVEN. NO S/S OF DISTRESS. PT IS STABLE.
--- NOTE | 2021-08-04 13:42 | NUR ---
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 CALLED [facility] [phone] FAXED TO [facility], AND SPOKE WITH PRINCESS MALLORY MOLINA PATIENT AND WILL START THE CARE TOMORROW. CM TO FOLLOW
[2021-08-04 13:51] VITALS: BP 115/40
--- NOTE | 2021-08-04 15:03 | NUR ---
PHYSICAL THERAPY NOTE NO TREATMENT RENDERED TODAY, 08/04/21, DUE TO PATIENT ON DIALYSIS
--- NOTE | 2021-08-04 17:00 | NUR ---
DISCHARGED PT TO CAREGIVER. PT IS BREATHING UNLABORED AND EVEN. NO S/S OF DISTRESS. PT IS STABLE. IV TAKEN OUT AND INTACT.
== END 2021-08-04 17:00 | disposition home health service (06) | DRG 853 ==
LOC: MED 23:25 → MTU 07-31 07:01 → MMU 07-31 10:55
PROVIDERS: ADMIT Family Medicine; ATTEND Family Medicine
PROC: 3E0M05Z Introduction of Adhesion Barrier into Peritoneal Cavity, Open Approach (ICD-10-PCS; 2021-07-31)
PROC: 0DBU0ZZ Excision of Omentum, Open Approach (ICD-10-PCS; 2021-07-31)
PROC: 0DN80ZZ Release Small Intestine, Open Approach (ICD-10-PCS; 2021-07-31)
PROC: 5A1D70Z Performance of Urinary Filtration, Intermittent, Less than 6 Hours Per Day (ICD-10-PCS; 2021-07-31)
PROC: 0WUF0JZ Supplement Abdominal Wall with Synthetic Substitute, Open Approach (ICD-10-PCS; principal; 2021-07-31 13:30)
PROC: 5A1D70Z Performance of Urinary Filtration, Intermittent, Less than 6 Hours Per Day (ICD-10-PCS; 2021-08-02)
PROC: 5A1D70Z Performance of Urinary Filtration, Intermittent, Less than 6 Hours Per Day (ICD-10-PCS; 2021-08-03)
DX: A41.9 Sepsis, unspecified organism (principal); N17.0 Acute kidney failure with tubular necrosis; E43 Unspecified severe protein-calorie malnutrition; N18.6 End stage renal disease; K42.0 Umbilical hernia with obstruction, without gangrene; K56.600 Partial intestinal obstruction, unspecified as to cause; E87.2 Acidosis; I12.0 Hypertensive chronic kidney disease with stage 5 chronic kidney disease or end stage renal disease; Z68.41 Body mass index [BMI] 40.0-44.9, adult; J44.9 Chronic obstructive pulmonary disease, unspecified; E87.5 Hyperkalemia; E83.39 Other disorders of phosphorus metabolism; E66.01 Morbid (severe) obesity due to excess calories; Z20.822 Contact with and (suspected) exposure to COVID-19; Z88.6 Allergy status to analgesic agent; Z88.5 Allergy status to narcotic agent; Z79.899 Other long term (current) drug therapy; Z99.2 Dependence on renal dialysis
CPT/HCPCS: 36415; 71045; 80053; 82150; 83036; 83605; 83690; 83735; 83880; 84100; 84439; 84443; 84484; 85025; 85610; 85730; 87081; 88302; 93005; 96365; 96375; 96376; 97110; 97163-GP; 97530; 99291; C1781; C9113; J0295; J1100; J1170; J2001; J2250; J2270; J2370; J2405; J2704; J2710; J3490; J7030; J7120; Q0092; Q5106; U0003